=== PATIENT | female | born 1950 | race Caucasian/White ===

== ENCOUNTER 2017-06-14 02:11 | Emergency (ER) | payer SELFPAY ==
[2017-06-14] MEDS ORDERED: NS 0.9% 500 ML* 500 ML IV ONE (02:49)
[2017-06-14 03:55] LABS: Hematocrit 31 % (35-47); Hemoglobin 10.3 g/dl (12.0-16.0); Mean Corpuscular HGB Conc 33 g/dl (31-36); Mean Corpuscular Hemoglobin 31 pg (27-31); Mean Corpuscular Volume 92 fL (80-97); Mean Platelet Volume 8 um3 (7.4-10.4); Red Blood Count 3.36 10^6/ul (4.0-5.4); Red Cell Distribution Width 13 % (10.5-15); White Blood Count 8.9 10^3/ul (3.5-10.8)
[2017-06-14 04:06] LABS: ALT 15 U/L (7-52); AST 19 U/L (13-39); Albumin 3.4 g/dL (3.2-5.2); Alcohol < 10 mg/dL (<10); Alkaline Phosphatase 56 U/L (34-104); Anion Gap 7 mmol/L (2-11); BUN/Creatinine Ratio 25.7 (8-20); Blood Urea Nitrogen 18 mg/dL (6-24); CO2 Carbon Dioxide 27 mmol/L (22-32); Calcium 8.9 mg/dL (8.6-10.3); Chloride 102 mmol/L (101-111); Globulin 3.1 g/dL (2-4); Glucose 168 mg/dL (70-100); Potassium 3.4 mmol/L (3.5-5.0); Sodium 136 mmol/L (133-145); Total Protein 6.5 g/dL (6.4-8.9)
[2017-06-14 04:21] LABS: TSH (Thyroid Stimulating Horm) 2.11 mcIU/mL (0.34-5.60)
[2017-06-14 05:24] LABS: Urine Bacteria Absent (Absent); Urine Bilirubin Negative (Negative); Urine Glucose Negative (Negative); Urine Nitrite Negative (Negative)
[2017-06-14] MEDS ORDERED: Cephalexin CAP* 500 MG PO ONE (06:19)
--- NOTE | 2017-06-14 07:00 | ED ---
Lashaun Vickers Edward, scribed for Brenna Abreu MD on 06/14/17 at 0224 . Complex/Multi-Sys Presentation - HPI Summary HPI Summary: 67 y/o female LILLY c/o AMS and N/V. Pt is living in a building that deals with people in transition from homelessness and drug abuse. Per EMS, the pt's living conditions are extremely poor. Per EMS, the pt's roommates state that she was shaking her L arm. Pt used EtOH tonight, per EMS. Pt denies drug use. Associated sx: weakness. LEVEL 5 CAVEAT DUE TO AMS - History Of Current Complaint Chief Complaint: EDGeneral Time Seen by Provider: 06/14/17 02:18 Hx Obtained From: Patient Associated Signs And Symptoms: Positive: Nausea, Vomiting, Other - AMS - Allergies/Home Medications Allergies/Adverse Reactions: Allergies Allergy/AdvReac Type Severity Reaction Status Date / Time No Known Allergies Allergy Verified 07/26/14 12:37 PMH/Surg Hx/FS Hx/Imm Hx Previously Healthy: No Endocrine/Hematology History: Denies: Hx Anticoagulant Therapy, Hx Blood Disorders, Hx Blood Transfusions, Hx Bone Marrow Disease, Hx Diabetes, Hx Systemic Lupus Erythematosus, Hx Sickle Cell Disease, Hx Thyroid Disease, Hx Anemia, Hx Unexplained Bleeding, Other Endocrine/Hematological Disorders Cardiovascular History: Denies: Hx Pacemaker/ICD GI History: Reports: Hx Gall Bladder Disease Denies: Hx Cirrhosis, Hx Crohn's Disease, Hx Diverticulosis, Hx Gastroesophageal Reflux Disease, Hx Gastrointestinal Bleed, Hx Hiatal Hernia, Hx Irritable Bowel, Hx Jaundice, Hx Obstructive Bowel, Hx Ileostomy, Hx Pyloric Stenosis, Hx Ulcer, Other GI Disorders History: Reports: Other Problems/Disorders - gallbladder and appendix removed in the 90s Sensory History: Reports: Hx Contacts or Glasses - bifocals Denies: Hx Cataracts, Hx Eye Injury, Hx Eye Prosthesis, Hx Glaucoma, Hx Macular Degeneration, Hx Vision Problem, Hx Deafness, Hx Hearing Aid, Hx Hearing Problem, Other Sensory Impairments Opthamlomology History: Reports: Hx Contacts or Glasses - bifocals Denies: Hx Cataracts, Hx Eye Injury, Hx Eye Prosthesis, Hx Glaucoma, Hx Macular Degeneration, Hx Vision Problem, Other Sensory Impairments Neurological History: Reports: Other Neuro Impairments/Disorders - short term memory loss Denies: Hx Dementia, Hx Developmental Delay, Hx Headaches, Hx Migraine, Hx Nerve Disease, Hx Seizures, Hx Spinal Cord Injury Psychiatric History: Denies: Hx Panic Disorder Comment Only: Hx Schizophrenia - Mother had schixophrenia - Surgical History Surgery Procedure, Year, and Place: GALLBLADDER,APPY Hx Anesthesia Reactions: No Infectious Disease History: No Infectious Disease History: Denies: Hx Hepatitis, Traveled Outside the [place] in Last 30 Days - Family History Known Family History: Negative: Cardiac Disease, Respiratory Disease - Social History Alcohol Use: Occasionally Hx Substance Use: No Substance Use Type: Reports: None Hx Tobacco Use: No Smoking Status (MU): Never Smoked Tobacco Review of Systems - ROS Summary Review of Systems Summary: LEVEL 5 CAVEAT DUE TO AMS Positive: Vomiting, Nausea Neurological: Other - AMS Positive: Weakness All Other Systems Reviewed And Are Negative: No Physical Exam - Summary Physical Exam Summary: LEVEL 5 CAVEAT DUE TO AMS Appearance: AMS. There is vomit on the pt's glasses, face and legs. There are specks of feces and dirt on her legs. Skin: Warm, dry, no mottling, no rashes, no contusions HEENT: EOMI, PERRL, dry mucous membranes Neck: No masses on the neck, supple Respiratory: Clear to auscultation, breath sounds present, no rales, no rhonchi , no wheezes Cardiovascular: RRR, pulses are symmetrical in both lower and upper extremities. Pt is hypotensive. Abdomen: Soft, non-tender Bowel Sounds: Present Musculoskeletal: No CVA tenderness, no obvious deformity, moving all extremities in a grossly normal manner Neurological: CN II-XII Intact, moving all extremities symmetrically Psychiatric: Normal affect and mood Triage Information Reviewed: Yes Vital Signs On Initial Exam: Initial Vitals Temp Pulse Resp BP Pulse Ox 97.3 F 72 18 97/67 99 06/14/17 02:15 06/14/17 02:15 06/14/17 02:15 06/14/17 02:15 06/14/17 02:15 Vital Signs Reviewed: Yes Diagnostics - Vital Signs Vital Signs Temp Pulse Resp BP Pulse Ox 06/14/17 02:15 97.3 F 72 18 97/67 99 - Laboratory Lab Results: Lab Results 06/14/17 06/14/17 06/14/17 Range/Units 03:30 03:30 03:30 WBC 8.9 (3.5-10.8) 10^3/ul RBC 3.36 L (4.0-5.4) 10^6/ul Hgb 10.3 L (12.0-16.0) g/dl Hct 31 L (35-47) % MCV 92 (80-97) fL MCH 31 (27-31) pg MCHC 33 (31-36) g/dl RDW 13 (10.5-15) % Plt Count 280 (150-450) 10^3/ul MPV 8 (7.4-10.4) um3 Neut % (Auto) 78.2 (38-83) % Lymph % (Auto) 5.9 L (25-47) % [place] % (Auto) 5.6 (1-9) % Eos % (Auto) 9.6 H (0-6) % Baso % (Auto) 0.7 (0-2) % Absolute Neuts (auto) 7.0 (1.5-7.7) 10^3/ul Absolute Lymphs (auto) 0.5 L (1.0-4.8) 10^3/ul Absolute Monos (auto) 0.5 (0-0.8) 10^3/ul Absolute Eos (auto) 0.9 H (0-0.6) 10^3/ul Absolute Basos (auto) 0.1 (0-0.2) 10^3/ul Absolute Nucleated RBC 0 10^3/ul Nucleated RBC % 0 Sodium 136 (133-145) mmol/L Potassium 3.4 L (3.5-5.0) mmol/L Chloride 102 (101-111) mmol/L Carbon Dioxide 27 (22-32) mmol/L Anion Gap 7 (2-11) mmol/L BUN 18 (6-24) mg/dL Creatinine 0.70 (0.51-0.95) mg/dL Est GFR ( Amer) 108.0 (>60) Est GFR (Non-Af Amer) 84.0 (>60) BUN/Creatinine Ratio 25.7 H (8-20) Glucose 168 H (70-100) mg/dL Lactic Acid 1.9 (0.5-2.0) mmol/L Calcium 8.9 (8.6-10.3) mg/dL Magnesium 2.0 (1.9-2.7) mg/dL Total Bilirubin 0.20 (0.2-1.0) mg/dL AST 19 (13-39) U/L ALT 15 (7-52) U/L Alkaline Phosphatase 56 (34-104) U/L Total Protein 6.5 (6.4-8.9) g/dL Albumin 3.4 (3.2-5.2) g/dL Globulin 3.1 (2-4) g/dL Albumin/Globulin Ratio 1.1 (1-3) TSH 2.11 (0.34-5.60) mcIU/mL Urine Color Urine Appearance Urine pH (5-9) Ur Specific [place] (1.010-1.030) Urine Protein (Negative) Urine Ketones (Negative) Urine Blood (Negative) Urine Nitrate (Negative) Urine Bilirubin (Negative) Urine Urobilinogen (Negative) Ur Leukocyte Esterase (Negative) Urine WBC (Auto) (Absent) Urine RBC (Auto) (Absent) Ur Squamous Epith Cells (Absent) Urine Bacteria (Absent) Hyaline Casts (Absent) Urine Glucose (Negative) Serum Alcohol < 10 (<10) mg/dL 06/14/17 Range/Units 04:40 WBC (3.5-10.8) 10^3/ul RBC (4.0-5.4) 10^6/ul Hgb (12.0-16.0) g/dl Hct (35-47) % MCV (80-97) fL MCH (27-31) pg MCHC (31-36) g/dl RDW (10.5-15) % Plt Count (150-450) 10^3/ul MPV (7.4-10.4) um3 Neut % (Auto) (38-83) % Lymph % (Auto) (25-47) % [place] % (Auto) (1-9) % Eos % (Auto) (0-6) % Baso % (Auto) (0-2) % Absolute Neuts (auto) (1.5-7.7) 10^3/ul Absolute Lymphs (auto) (1.0-4.8) 10^3/ul Absolute Monos (auto) (0-0.8) 10^3/ul Absolute Eos (auto) (0-0.6) 10^3/ul Absolute Basos (auto) (0-0.2) 10^3/ul Absolute Nucleated RBC 10^3/ul Nucleated RBC % Sodium (133-145) mmol/L Potassium (3.5-5.0) mmol/L Chloride (101-111) mmol/L Carbon Dioxide (22-32) mmol/L Anion Gap (2-11) mmol/L BUN (6-24) mg/dL Creatinine (0.51-0.95) mg/dL Est GFR ( Amer) (>60) Est GFR (Non-Af Amer) (>60) BUN/Creatinine Ratio (8-20) Glucose (70-100) mg/dL Lactic Acid (0.5-2.0) mmol/L Calcium (8.6-10.3) mg/dL Magnesium (1.9-2.7) mg/dL Total Bilirubin (0.2-1.0) mg/dL AST (13-39) U/L ALT (7-52) U/L Alkaline Phosphatase (34-104) U/L Total Protein (6.4-8.9) g/dL Albumin (3.2-5.2) g/dL Globulin (2-4) g/dL Albumin/Globulin Ratio (1-3) TSH (0.34-5.60) mcIU/mL Urine Color Yellow Urine Appearance Cloudy Urine pH 6.0 (5-9) Ur Specific [place] 1.013 (1.010-1.030) Urine Protein 1+(30 mg/dl) H (Negative) Urine Ketones Negative (Negative) Urine Blood 1+ H (Negative) Urine Nitrate Negative (Negative) Urine Bilirubin Negative (Negative) Urine Urobilinogen Negative (Negative) Ur Leukocyte Esterase 3+ H (Negative) Urine WBC (Auto) 2+(11-20/hpf) H (Absent) Urine RBC (Auto) 2+(6-10/hpf) H (Absent) Ur Squamous Epith Cells Present H (Absent) Urine Bacteria Absent (Absent) Hyaline Casts Present H (Absent) Urine Glucose Negative (Negative) Serum Alcohol (<10) mg/dL Result Diagrams: 06/14/17 03:30 06/14/17 03:30 Lab Statement: Any lab studies that have been ordered have been reviewed, and results considered in the medical decision making process. - CT BRAIN CT CT Interpretation: No Acute Changes - NO ACUTE BRAIN PARENCHYMAL ABNORMALITY. NO HEMORRHAGE, MASS OR ACUTE TERRITORIAL INFARCT. AGE-RELATED INVOLUTIONAL CHANGES. CLEAR VISUALIZED PARANASAL SINUSES. VISUALIZED MASTOID AIR CELLS CLEAR. CT Interpretation Completed By: Radiologist - ED PHYSICIAN REVIEWS AND AGREES Re-Evaluation - Re-Evaluation 1 Re-Evaluation Time: 04:30 Comment: Re-assess pt. Pt is able to ambulate without difficulty 2 Re-Evaluation Time: 18:45 Comment: Discuss plan of care. Discussed plan to have pt work with social media marketing manager. Complex Multi-Symp Course/Dx Assessment/Plan: 67 y/o female BIBA c/o AMS and N/V. Pt is living in a building that deals with people in transition from homelessness and drug abuse. Per EMS, the pt's living conditions are extremely poor. Per EMS, the pt's roommates state that she was shaking her L arm. Pt used EtOH tonight, per EMS. Pt denies drug use. BRAIN CT SHOWS NO ACUTE BRAIN PARENCHYMAL ABNORMALITY. NO HEMORRHAGE, MASS OR ACUTE TERRITORIAL INFARCT. AGE-RELATED INVOLUTIONAL CHANGES. CLEAR VISUALIZED PARANASAL SINUSES. VISUALIZED MASTOID AIR CELLS CLEAR. On re-eval, pt is able to ambulate without difficulty. UA (+) UTI. LEVEL 5 CAVEAT DUE TO AMS - Diagnoses Provider Diagnoses: UTI (urinary tract infection), Weakness Discharge - Discharge Plan Condition: Stable Disposition: HOME Prescriptions: Cephalexin CAP* [Keflex CAP*] 500 mg PO TID 7 Days #21 cap Patient Education Materials: Urinary Tract Infection in Women (ED), Weakness ( ED) Referrals: No Primary Care Phys,NOPCP [Primary Care Provider] - Additional Instructions: Take the antibiotic as instructed. a prescription for keflex has been sent electronically to your pharmacy. return if worse or any new symptoms. Take all other medications as previously instructed. The documentation as recorded by the Lashaun antony Edward accurately reflects the service I personally performed and the decisions made by me, Brenna Abreu MD.
--- NOTE | 2017-06-14 08:05 | RAD ---
INDICATION: Altered mental status COMPARISON: MRI brain February 21, 2013 TECHNIQUE: Noncontrast axial source images were acquired from the skull base to the vertex. FINDINGS: Ventricles/sulci: The ventricles and cisterns are normal in size and configuration for age. There is mild age-related involutional change. Brain parenchyma: There is no focal parenchymal finding, evidence of intracranial mass, or intracranial mass effect. Intracranial hemorrhage:None. Extra-axial spaces: There are no abnormal extra axial fluid collections or evidence of extra-axial mass. Calvarium: There is no calvarial fracture or other calvarial abnormality. Scalp: There is no evidence of scalp or extracalvarial soft tissue abnormality. Paranasal sinuses/mastoid: The paranasal sinuses and mastoid air cells are clear. Other: None. IMPRESSION: No acute intracranial findings. No interval changes.
[2017-06-14 08:32] VITALS: BP 116/74
== END 2017-06-14 07:50 | disposition home or self-care (01) ==
LOC: ED 02:11
DX: N39.0 Urinary tract infection, site not specified (principal); R53.1 Weakness; R11.2 Nausea with vomiting, unspecified; R41.82 Altered mental status, unspecified
CPT/HCPCS: 36415; 70450; 80053; 80320; 81003; 81015; 83605; 83735; 84443; 85025; 87086; 99284; A9270-GY; G0480

== ENCOUNTER 2017-11-20 19:52 | Inpatient (IN) | payer MEDICARE ==
[2017-11-20] MEDS ORDERED: NS 0.9% 1000 ML* 1,000 ML IV ONE (21:31)
[2017-11-20 21:56] LABS: ABS Basophils 0 10^3/ul (0-0.2); ABS Eosinophils 0.1 10^3/ul (0-0.6); ABS Lymphocytes 0.4 10^3/ul (1.0-4.8); ABS Monocytes 0.4 10^3/ul (0-0.8); ABS Neutrophils 6.2 10^3/ul (1.5-7.7); ABS Nucleated RBC 0 10^3/ul; Eosinophil % 1.2 % (0-6); Hematocrit 35 % (35-47); Hemoglobin 11.7 g/dl (12.0-16.0); Lymphocyte % 5.5 % (25-47); Mean Corpuscular HGB Conc 34 g/dl (31-36); Mean Corpuscular Hemoglobin 32 pg (27-31); Mean Corpuscular Volume 95 fL (80-97); Mean Platelet Volume 8.6 um3 (7.4-10.4); Nucleated Red Blood Cells % 0; Platelet Count 190 10^3/ul (150-450); Red Blood Count 3.69 10^6/ul (4.0-5.4); Red Cell Distribution Width 16 % (10.5-15); White Blood Count 7.1 10^3/ul (3.5-10.8)
[2017-11-20 22:05] LABS: INR 0.82 (0.77-1.02)
[2017-11-20] MEDS ORDERED: Morphine INJ* 2 MG/ML 1 ML CARPUJECT IV ONE (22:30)
[2017-11-20] MEDS ORDERED: Morphine VIAL* 4 MG/ML VIAL (1 ml vial) IV ONE (22:32)
[2017-11-20] MEDS ORDERED: Ondansetron INJ* 2 MG/ML VIAL IV ONE (22:33)
[2017-11-21] MEDS ORDERED: diPHENhydraMINE IV* 50 MG/ML 1 ml VIAL (BENADRYL) ONE (01:39)
[2017-11-21] MEDS ORDERED: diPHENhydraMINE IV* 50 MG/ML 1 ml VIAL (BENADRYL) SLOW PUSH ONE (02:22)
[2017-11-21] MEDS ORDERED: Morphine VIAL* 4 MG/ML VIAL (1 ml vial) IV ONE (02:23)
[2017-11-21 03:45] LABS: Urine Appearance Clear; Urine Blood 2+ (Negative); Urine Color Yellow; Urine Ketones Negative (Negative); Urine Protein Negative (Negative); Urine Urobilinogen Negative (Negative)
[2017-11-21] MEDS: NS 0.9% 1000 ML* 1,000 ML IV SCH (04:14)
[2017-11-21] MEDS: Acetaminophen TAB* 325 MG PO SCH ×4 (05:14→21:24)
[2017-11-21] MEDS ORDERED: Enoxaparin(*) 30 MG/0.3 ML SYR SUBCUT SCH (06:00)
--- NOTE | 2017-11-21 06:11 | ED ---
Megan Vickers Jason, scribed for Carrol Ellison MD on 11/20/17 at 2109 . Adult Trauma - HPI Summary HPI Summary: This patient is a 67 year old F BIBA presenting to [facility] with a chief complaint of a non-witnessed fall since this evening. She states she slipped and fell going to the bathroom. Additionally, she includes that she lives with 5 friends. EMS states she was covered in feces and vomit, and had bed bugs upon arrival. She states she does not take medicines daily. When asked about leaving her current living situation she responded I dont want to be in fdc because I will feel like Im in an institution. The patient rates the pain 4/ 10 in severity. Symptoms aggravated by movement. Symptoms alleviated by nothing. Patient reports right leg pain. Patient denies headache and chest pain - History of Current Complaint Stated Complaint: RIGHT LEG PAIN Time Seen by Provider: 11/20/17 20:53 Hx Obtained From: Patient, EMS Mechanism of Injury: Fall - slipped in the bathroom Onset/Duration: Still Present Pain Scale Used: 0-10 Numeric Location: Other - right leg Aggravating Factor(s): Movement - leg movement Alleviating Factor(s): Nothing Associated Signs & Symptoms: Positive: Other: - right leg pain - Allergy/Home Medications Allergies/Adverse Reactions: Allergies Allergy/AdvReac Type Severity Reaction Status Date / Time No Known Allergies Allergy Verified 07/26/14 12:37 Home Medications: Home Medications NK [No Home Medications Reported] 11/20/17 [History Confirmed 11/20/17] PMH/Surg Hx/FS Hx/Imm Hx Previously Healthy: No Endocrine/Hematology History: Denies: Hx Anticoagulant Therapy, Hx Blood Disorders, Hx Blood Transfusions, Hx Bone Marrow Disease, Hx Diabetes, Hx Systemic Lupus Erythematosus, Hx Sickle Cell Disease, Hx Thyroid Disease, Hx Anemia, Hx Unexplained Bleeding, Other Endocrine/Hematological Disorders Cardiovascular History: Denies: Hx Pacemaker/ICD GI History: Reports: Hx Gall Bladder Disease Denies: Hx Cirrhosis, Hx Crohn's Disease, Hx Diverticulosis, Hx Gastroesophageal Reflux Disease, Hx Gastrointestinal Bleed, Hx Hiatal Hernia, Hx Irritable Bowel, Hx Jaundice, Hx Obstructive Bowel, Hx Ileostomy, Hx Pyloric Stenosis, Hx Ulcer, Other GI Disorders History: Reports: Other Problems/Disorders - gallbladder and appendix removed in the 90s Sensory History: Reports: Hx Contacts or Glasses - bifocals Denies: Hx Cataracts, Hx Eye Injury, Hx Eye Prosthesis, Hx Glaucoma, Hx Macular Degeneration, Hx Vision Problem, Hx Deafness, Hx Hearing Aid, Hx Hearing Problem, Other Sensory Impairments Opthamlomology History: Reports: Hx Contacts or Glasses - bifocals Denies: Hx Cataracts, Hx Eye Injury, Hx Eye Prosthesis, Hx Glaucoma, Hx Macular Degeneration, Hx Vision Problem, Other Sensory Impairments Neurological History: Reports: Other Neuro Impairments/Disorders - short term memory loss Denies: Hx Dementia, Hx Developmental Delay, Hx Headaches, Hx Migraine, Hx Nerve Disease, Hx Seizures, Hx Spinal Cord Injury Psychiatric History: Denies: Hx Panic Disorder Comment Only: Hx Schizophrenia - Mother had schixophrenia - Surgical History Surgery Procedure, Year, and Place: GALLBLADDER,APPY Hx Anesthesia Reactions: No Infectious Disease History: Denies: Hx Hepatitis, Traveled Outside the [place] in Last 30 Days - Family History Known Family History: Negative: Cardiac Disease, Hypertension, Diabetes, Respiratory Disease - Social History Alcohol Use: Occasionally Hx Substance Use: No Substance Use Type: Reports: None Hx Tobacco Use: No Smoking Status (MU): Never Smoked Tobacco Review of Systems Negative: Chest Pain Positive: Other - right leg pain Negative: Headache All Other Systems Reviewed And Are Negative: Yes Physical Exam - Summary Physical Exam Summary: GENERAL: Patient is a malnourished female who is lying comfortably in the stretcher. Patient is not in any acute respiratory distress. HEAD AND FACE: Normocephalic EYES: PERRLA, EOMI x 2. EARS: Hearing grossly intact. MOUTH: Oropharynx within normal limits. NECK: Supple, trachea is midline, no adenopathy, no JVD, no carotid bruit. CHEST: Symmetric, no tenderness at palpation LUNGS: Clear to auscultation bilaterally. No wheezing or crackles. CVS: Regular rate and rhythm, S1 and S2 present, no murmurs or gallops appreciated. ABDOMEN: Soft, no tenderness to palpation. Bowel sounds are normal. No abdominal abnormal pulsations. EXTREMITIES: Full ROM in all major joints, no edema, no cyanosis or clubbing. Tenderness to palpation in the right pelvis/femur area. Skin tear on right elbow. NEURO: Alert and oriented x 3. No acute neurological deficits. Speech is normal and follows commands. SKIN: Dry and warm Triage Information Reviewed: Yes Vital Signs Reviewed: Yes Diagnostics - Laboratory Result Diagrams: 11/20/17 21:40 11/20/17 21:40 Lab Statement: Any lab studies that have been ordered have been reviewed, and results considered in the medical decision making process. - Radiology CXR Radiology Interpretation Completed By: Radiologist - CXR reveals, per physician , hyperinflated lungs, no pneumonia. - CT Head CT Interpretation Completed By: Radiologist - CT Head reveals, per radiologist, No acute intracranial hemorrhage mass effect or midline shift. This CT exam was performed using one or more of the following dose reduction techniques: automated exposure control, adjustment of the mA and/or kV according to patient size, use of iterative reconstructive technique. ED physician has reviewed this radiology report Lower extremity CT Interpretation Completed By: Radiologist - CT Lower extremity, per radiologist, reveals acute impacted, communited, subcapital fracture right femoral head. Dilated urinary bladder. Large fecal colon. ED physician has reviewed this radiology report. Pelvis CT Interpretation Completed By: Radiologist - CT Pelvis reveals, per radiologist , acute fracture right femoral neck as previously described. Large feces rectum. Dilated bladder. ED physician has reviewed this radiology report. - EKG 213 Cardiac Rate: NL EKG Rhythm: Sinus Rhythm - [address] Segment: Non-Specific Ectopy: None Adult Trauma Course/Dx - Course Assessment/Plan: This is a 67 year old female who presents to the emergency room with right hip pain status post fall. Her workup is remarkable for elevated blood creatinine ratio at 25.3 and a lactic acid of 2.[address] scan of the hip is remarkable for a right femoral neck fracture. Patient will be admitted to the hospitalist, Dr. Torrez and consulted by Dr. Rice (orthopedist) in the morning. Patient made NPO for plan for OR later on. - Diagnoses Provider Diagnoses: Fracture of femoral neck, right, Dehydration - Physician Notifications Discussed Care Of Patient With: Philip Rice Time Discussed With Above Provider: 01:45 Instructed by Provider To: Admit As Inpatient Discharge - Sign-Out/Discharge Documenting (check all that apply): Discharge - Discharge Plan Condition: Stable Disposition: ADMITTED TO [facility] The documentation as recorded by the Megan antony Jason accurately reflects the service I personally performed and the decisions made by , Carrol Ellison MD.
--- NOTE | 2017-11-21 06:17 | HP ---
HISTORY AND PHYSICAL: DATE OF ADMISSION: 11/21/17 TIME OF ADMISSION: 2 o'clock a.m. CHIEF COMPLAINT: Fall. HISTORY OF PRESENT ILLNESS: This is a 67-year-old female with a history of dementia who is unable to provide me with a history of present illness, who was brought in by EMS today after her family called because she fell down two stairs. Ms. Mitchell is unable to provide me history due to dementia and her contact listed in the chart has a non-working number, so please note that this HPI is mostly obtained from her record and the EMS record. EMS reports that her family was there at the time they arrived and said that they found her on the floor and that her fall was unwitnessed, but that she was complaining of right leg pain at the time. Her family has not been in the emergency department with her. EMS reported deplorable home conditions with feces all over the house and holes in the floor. When she arrived to the emergency department, she was screaming non-sensibly. She was given food and told her nurse that she had not eaten and also received a bath from her nurse and reported that she had not been cleaned for some time. She cannot tell me why she is in the hospital or even that she is in the hospital. She is able to tell me that we are in [place], [place] and tell me her date of ; however, she shouts these answers without me asking those specific questions. She has outbursts of anxiety saying she "can't do it anymore" but does not respond to most of my questions. PAST MEDICAL HISTORY: Based on her records, it appears that she was evaluated by Neurology in 2013 and had some cognitive decline at that point, but they saw in Dr. Barrios's note, in December of 2013 she had no past medical history. PAST SURGICAL HISTORY: Again, this is obtained from her records, which indicate that she has had an appendectomy, a cholecystectomy, and a small bowel obstruction that required resection. HOME MEDICATIONS: Unknown and unable to be obtained at this point. SOCIAL HISTORY: She is unable to tell me anything about her home, her family, or who I should contact. Her son, Luis Fernando is listed as her point of contact; however, the phone number listed in the chart is not working. REVIEW OF SYSTEMS: She cannot provide me with her review of systems; however, she denies pain at this time. PHYSICAL EXAMINATION GENERAL: Alert, anxious, hypervigilant female who appears older than her stated age. She is ill appearing, very thin, and impulsive. VITAL SIGNS: Temperature 97.6, heart rate 68, respiratory rate 18, pulse ox 98 % on room air, blood pressure 130/80. HEENT: Pupils equal, round, and reactive to light. She is unable to follow my commands for extraocular movement or nystagmus exam. Her mucosa is dry. NECK: No cervical lymphadenopathy. No JVP. Thyroid is nonpalpable. LUNGS: Clear bilaterally. CHEST: Regular rate and rhythm. I hear no murmurs. ABDOMEN: Firm, mildly distended, and nontender to palpation. She has bowel sounds in all quadrants. A Holder catheter is in place draining yellow urine. EXTREMITIES: No edema. Distal extremities are cool bilaterally. DP pulses are 2+ bilaterally. She has no pain to palpation in the hip; however, she resists passive range of motion in the right hip. NEUROLOGIC: She is anxious, tremulous, and does not follow simple or complex commands. She moves all 4 extremities, has facial symmetry. LABORATORY DATA/DIAGNOSTIC STUDIES: Sodium 133, potassium 4.1, chloride 98, bicarb 27, BUN 20, creatinine 0.79, glucose 156, lactic acid 2.5, magnesium 1.7. Troponin 0.00. EKG, normal sinus rhythm at 68, normal axis, normal intervals, no ST or T-wave changes. CT head, no acute intracranial hemorrhage, mass effect, or midline shift. Pelvis CT, acute fracture of right femoral neck. Lower extremity CT, acute impacted comminuted subcapital fracture of the right femoral head. ASSESSMENT AND PLAN: This is a 67-year-old female with history of dementia as per the EMS report, who was transferred to the emergency department after her family called EMS because she had an unwitnessed fall and right hip pain and was found to have a right femoral neck fracture in the ED. 1. Right femoral neck fracture. The emergency department has consulted Orthopedic Surgery and I appreciate their consultation on this patient. She certainly cannot provide consent, so family will need to be obtained as soon as possible, and I am entering a social work consult to help find family. For the fracture, she is unable to articulate pain, so I am giving her standing Tylenol as I suspect uncontrolled pain may be contributing to her delirium. 2. Delirium versus dementia. EMS documented that her family told them that she has dementia; however, I have no other confirmation of this. She has no record of workup and she has not been here since 2013 to rule out acute causes of encephalopathy. I am checking a UA, an ammonia, a drug screen, and alcohol level, salicylate level, and acetaminophen level and ammonia, B12, and RPR. A CT head was negative in the emergency department. 3. Abdominal distention. I am checking a KUB now. She does not have an acute abdomen on my exam, but she may need a bowel regimen. 4. Hyponatremia. She is hypovolemic. I suspect this is related to poor p.o. intake. Start normal saline and recheck in the morning. 5. Elevated lactate. Recheck after IV fluids. 6. DVT prophylaxis. Lovenox subcutaneously. 7. Diet. N.p.o. for possible OR intervention. Admit to hospitalist service with orthopedic consult. I am requesting social work input for helping to find family as well as adult protective services. [id number]/[facility] #: [id number] [facility]ATR[facility] CENTERMohit
--- NOTE | 2017-11-21 08:40 | RAD ---
Indication: Syncope. Single frontal view of the chest performed at 2215 hours was reviewed. Comparison is made with previous exam dated February 11, 2013. No mediastinal shift is noted. Heart is of normal size and configuration. Lung vasquez appear clear. IMPRESSION: NO ACTIVE CARDIOPULMONARY DISEASE IS NOTED.
--- NOTE | 2017-11-21 08:45 | RAD ---
Indication: Fall, head injury. CT of the brain was performed without IV contrast. Ventricular structures are midline. No midline shift is noted. The extra-axial spaces are unremarkable. There is no evidence of intracranial mass or hemorrhage. No other high or low density lesions are identified. Mastoid air cells and paranasal sinuses are grossly unremarkable. IMPRESSION: No intracranial mass or hemorrhage is noted.
--- NOTE | 2017-11-21 08:47 | RAD ---
Indication: Right hip injury. CT of the pelvis was obtained in the axial plane. Sagittal and coronal reconstructed images were obtained. There is a subcapital fracture of the right femoral neck with overriding of the fracture fragments. Diffuse edema is noted. Pelvic ring is intact without evidence of fracture. The lower lumbar spine and sacrum are grossly unremarkable. The urinary bladder is markedly distended. No dilated loops of bowel are noted. The colon is filled with stool. IMPRESSION: There appears to be a fracture of the right femoral neck with overriding of the fracture fragments. Pelvic ring is otherwise intact. There is urinary distention noted.
[2017-11-21 08:48] LABS: EGFR Non-African American 75.2 (>60)
--- NOTE | 2017-11-21 08:50 | RAD ---
Indication: Right hip and femur pain. CT of the right femur was obtained in the axial plane. Sagittal and coronal reconstructed images were obtained. There is a fracture through the neck of the right femur. There is overriding of the fracture fragments. The remainder of the femur shows no fracture. Markedly distended urinary bladder is noted. Cc are present throughout. IMPRESSION: Fracture neck of the femur with overriding of the fracture fragments.
[2017-11-21] MEDS ORDERED: Magnesium Sulf 4 GM/100 ML IV* 4,000 MG/100 ML BAG IVPB ONE (09:02)
--- NOTE | 2017-11-21 10:24 | PN ---
Subjective Date of Service: 11/21/17 Interval History: Patient seen and examined at bedside. Denies fever, chills, shortness of breath , chest discomfort, N/V/D. Pt continues to have confusion, I suspect this is similar to her baseline. Pt is unclear on any details related to her fall. Family History: Unchanged from Admission Social History: Unchanged from Admission Past Medical History: Unchanged from Admission Objective Active Medications: Acetaminophen (Tylenol Tab*) 975 mg PO Q6H HERO Enoxaparin Sodium (Lovenox(*)) 30 mg SUBCUT Q24H HERO Sodium Chloride (Ns 0.9% 1000 Ml*) 1,000 mls @ 125 mls/hr IV PER RATE HERO Magnesium Sulfate (Magnesium Sulf 4 Gm/100 Ml Iv*) 4,000 mg in 100 mls @ 33.333 mls/hr IVPB ONCE ONE Stop: 11/21/17 12:01 Vital Signs - 8 hr 11/21/17 11/21/17 11/21/17 02:47 03:00 03:04 Temperature Pulse Rate 87 92 Respiratory 22 28 18 Rate Blood Pressure 147/76 (mmHg) O2 Sat by Pulse 97 97 Oximetry 11/21/17 11/21/17 11/21/17 03:13 03:18 03:27 Temperature 98.5 F 98.6 F Pulse Rate 87 88 82 Respiratory 17 19 20 Rate Blood Pressure 119/88 136/75 136/75 (mmHg) O2 Sat by Pulse 99 97 97 Oximetry 11/21/17 11/21/17 11/21/17 03:50 05:05 05:06 Temperature 98.5 F Pulse Rate 87 Respiratory 17 16 16 Rate Blood Pressure 119/88 (mmHg) O2 Sat by Pulse 99 Oximetry 11/21/17 07:29 Temperature 97.6 F Pulse Rate 84 Respiratory 16 Rate Blood Pressure 111/61 (mmHg) O2 Sat by Pulse 99 Oximetry Oxygen Devices in Use Now: None Appearance: NAD, laying in bed Ears/Nose/Mouth/Throat: Mucous Membranes Moist Respiratory: Symmetrical Chest Expansion and Respiratory Effort, Clear to Auscultation Cardiovascular: NL Sounds; No Murmurs; No JVD, RRR Abdominal: NL Sounds; No Tenderness; No Distention Extremities: No Edema Neurological: - - Alert and Oriented to Person, states she is in [place] Lines/Tubes/Other Access: Clean, Dry and Intact Holder - patent, draining clear yellow urine, Clean, Dry and Intact Peripheral IV - site benign Nutrition: Taking PO's Result Diagrams: 11/20/17 21:40 11/21/17 08:17 Assess/Plan/Problems-Billing Assessment: Ms. Mitchell is a 67 yo female with PMH significant for possible dementia who presented to the emergency room after an unwitnessed fall at home resulting in a right hip fracture. - Patient Problems (1) Fracture of femoral neck, right Code(s): S72.001A - FRACTURE OF UNSP PART OF NECK OF RIGHT FEMUR, INIT SNOMED Code(s): 5371751 Comment: - Ortho consult, input appreciated - Continue bedrest and pain control According to the RCRI she has 0 points, placing her at a class I risk and a 0.4 % risk of a major cardiac event. Prior METs score 4. No further work-up is needed at this time, she is medically optimized for surgery and may proceed when Ortho is ready. (2) Altered mental status Code(s): R41.82 - ALTERED MENTAL STATUS, UNSPECIFIED SNOMED Code(s): 957804139 Comment: - Delirium vs dementia - Suspect this is her baseline dementia - Work-up negative at this time (includes labs and brain CT) (3) Abdominal distention Code(s): R14.0 - ABDOMINAL DISTENSION (GASEOUS) SNOMED Code(s): 37364758 Comment: - Resolved - Pt had 2 BMs last night (4) Hypomagnesemia Code(s): E83.42 - HYPOMAGNESEMIA SNOMED Code(s): 010856251 Comment: - Will give replacement and recheck labs in the AM (5) Hyponatremia Code(s): E87.1 - HYPO-OSMOLALITY AND HYPONATREMIA SNOMED Code(s): 49704356 Comment: - Mild - Continue IVFs (6) Elevated lactic acid level Code(s): R79.89 - OTHER SPECIFIED ABNORMAL FINDINGS OF BLOOD CHEMISTRY SNOMED Code(s): 1904128 Comment: - Resolved - No signs of infection at this time, suspect secondary to stress from fall vs dehydration (7) DVT prophylaxis Code(s): ULB3689 - SNOMED Code(s): 394461548 Comment: - Lovenox (8) Full code status Code(s): Z78.9 - OTHER SPECIFIED HEALTH STATUS SNOMED Code(s): 994231688 Status and Disposition: Inpatient. Discharge after surgery once medically stable, suspect she will need SNF vs [facility] at discharge.
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
[2017-11-21] MEDS ORDERED: NS 0.9% 500 ML* 500 ML IV ONE ×2 (13:03→13:52)
[2017-11-21 14:18] LABS: Hematocrit 26 % (35-47); Hemoglobin 8.7 g/dl (12.0-16.0)
[2017-11-21] MEDS ORDERED: Buffered Lidocaine 0.9% SYRIN* 5 ML/SYR SYRINGE INTRADERM ONE (14:27)
[2017-11-21] MEDS ORDERED: DiMENhydriNATE IV* 50 MG/ML VIAL IV PUSH PRN (14:28)
[2017-11-21] MEDS ORDERED: fentaNYL* 50 MCG/ML 2 ML VIAL (100 MCG VIAL) IV PRN (14:28)
[2017-11-21] MEDS ORDERED: Levalbuterol 0.63MG/3ML NEB* UNIT OF USE INH PRN (14:28)
[2017-11-21] MEDS ORDERED: Naloxone* 0.4 MG/ML 1 ML VIAL IV PRN (14:28)
[2017-11-21] MEDS ORDERED: PROCHLORPERAZINE INJ 5 MG/ML 2 ML VIAL IV PRN (14:28)
[2017-11-21] MEDS ORDERED: ceFAZolin 2 GM PREMIX (*) 2 GM/50 ML BAG IVPB ONE (15:03)
[2017-11-21] MEDS ORDERED: fentaNYL* 50 MCG/ML 2 ML VIAL (100 MCG VIAL) ONE (15:30)
[2017-11-21] MEDS ORDERED: Midazolam* 1 MG/ML 2 ML VIAL (2 MG) ONE (15:30)
[2017-11-21] MEDS ORDERED: Bupivacaine 0.5%* 50 ML VIAL ONE (15:34)
[2017-11-21] MEDS ORDERED: Lidocaine 2% PF * 5 ML VIAL ONE (15:36)
[2017-11-21] MEDS ORDERED: Cisatracurium* 2 MG/ML MDV 5 ML ONE (15:37)
[2017-11-21] MEDS ORDERED: Hetastarch 6% in NS* 500 ML IV ONE (16:24)
[2017-11-21] MEDS ORDERED: Famotidine IV* 10 MG/ML 2 ML (20 mg) ONE (16:42)
[2017-11-21] MEDS ORDERED: EPHEDrine (Pressors)* 50 MG/ML VIAL ONE (16:42)
[2017-11-21] MEDS ORDERED: Propofol* 10 MG/ML 20 ML BTL IV PUSH ONE (16:42)
[2017-11-21] MEDS ORDERED: Dexamethasone IV* 4 MG/ML 1 ML (4 MG) ONE (16:42)
[2017-11-21 18:57] LABS: Hematocrit 22 % (35-47); Hemoglobin 7.4 g/dl (12.0-16.0)
--- NOTE | 2017-11-21 19:21 | RAD ---
Indication: Right hip replacement status post right hip fracture. AP view of the pelvis and an lateral view of the right hip demonstrates unipolar right hip replacement and femoral head prosthesis in satisfactory position. No evidence of periprosthetic fracture is noted. Additional right hip view demonstrates no fracture. IMPRESSION: Unipolar right hip replacement in satisfactory position.
[2017-11-21] MEDS ORDERED: oxyCODONE TAB* 5 MG TAB PO PRN (20:30)
[2017-11-21] MEDS: ceFAZolin 1 GM VIAL(*) 1 GM in D5W 50 ML BAG* 50 ML IVPB SCH (23:53)
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
[2017-11-22] MEDS: Acetaminophen TAB* 325 MG PO SCH ×4 (02:50→21:02)
[2017-11-22] MEDS: NS 0.9% 1000 ML* 1,000 ML IV SCH ×2 (05:08→20:04)
[2017-11-22 06:11] LABS: ABS Basophils 0 10^3/ul (0-0.2); ABS Eosinophils 0 10^3/ul (0-0.6); ABS Lymphocytes 0.5 10^3/ul (1.0-4.8); ABS Monocytes 0.4 10^3/ul (0-0.8); ABS Nucleated RBC 0 10^3/ul; Eosinophil % 0.2 % (0-6); Hematocrit 27 % (35-47); Hemoglobin 9.3 g/dl (12.0-16.0); Lymphocyte % 10.8 % (25-47); Mean Corpuscular HGB Conc 35 g/dl (31-36); Mean Corpuscular Hemoglobin 31 pg (27-31); Mean Corpuscular Volume 90 fL (80-97); Mean Platelet Volume 8.7 um3 (7.4-10.4); Nucleated Red Blood Cells % 0; Platelet Count 104 10^3/ul (150-450); Red Blood Count 2.96 10^6/ul (4.0-5.4); Red Cell Distribution Width 19 % (10.5-15)
[2017-11-22 06:14] LABS: EGFR Non-African American 102.3 (>60)
[2017-11-22] MEDS: ceFAZolin 1 GM VIAL(*) 1 GM in D5W 50 ML BAG* 50 ML IVPB SCH ×2 (08:04→16:04)
--- NOTE | 2017-11-22 08:36 | PN ---
Progress Note - Progress Note Date of Service: 11/22/17 SOAP: Subjective: 67 y/o female s/p hemiarthroplasty bipolar by Dr. Rice 11/21/2017. Patient states she noticed dropping objects more frequently, does remember surgery when reminded. VSS, afebrile overnight. Objective: General- Well appearing, NAD, AO sitting in chair comfortably. MSK- RLE- DF/PF = b/l, PT 2+, negative homans sign surgical dressing intact, no induration/erythema around dressing, non TTP, SITLT. Vital Signs Temp 97.7 F 11/22/17 03:26 Pulse 59 11/22/17 03:26 Resp 18 11/22/17 08:00 BP 96/57 11/22/17 03:26 Pulse Ox 100 11/22/17 03:26 Intake & Output 11/21/17 11/22/17 11/22/17 18:59 06:59 18:59 Intake Total 3404 1494 Output Total 1000 2775 Balance 2404 -1281 Intake: IV Fluids 3404 692 LR 1900 NS (0.9%) 1504 692 Oral 0 480 Packed Cells 322 Output: Holder 1000 2775 Other: # Bowel Movements 0 Estimated Blood Loss 200 Comment Assessment: Stable s/p hemiarthroplasty bipolar by Dr. Rice 11/21/2017 Plan: - DVT prophylaxis- Eliquis - Continue PT/ OT - Follow up with Dr. Rice within 10-14 days - H&H - stable, mild post-op anemia - post-op IV ABX - cefazolin running - UTI- cefazolin running x 5 days - Neurology consult placed for eval for possible reversible cause of dementia. - May be D/C'd with Knee immobilizer for sleeping rather then hip ABD brace due to dementia, fall risk. - Hip precautions - SOcial work following, will need placement, discussed with hospitalist. Acetaminophen (Tylenol Tab*) 975 mg PO Q6H [facility] Last Admin: 11/22/17 02:50 Dose: 975 mg Apixaban (Eliquis*) 5 mg PO BID [facility] Sodium Chloride (Ns 0.9% 1000 Ml*) 1,000 mls @ 125 mls/hr IV PER RATE [facility] Last Admin: 11/22/17 05:08 Dose: 125 mls/hr Cefazolin Sodium 1 gm/ (Dextrose) 50 mls @ 200 mls/hr IVPB Q8H [facility] Stop: 11/23/17 16:14 Last Admin: 11/22/17 08:04 Dose: 200 mls/hr Naloxone HCl (Narcan*) 0.08 mg IV Q2M PRN PRN Reason: severe induced resp depression Stop: 11/22/17 14:27 Oxycodone HCl (Roxycodone Tab*) 10 mg PO Q6H PRN PRN Reason: PAIN
--- NOTE | 2017-11-22 08:40 | PN ---
Progress Note - Progress Note Date of Service: 11/22/17 SOAP: Subjective: [] Objective: [] Assessment: [] Plan: []
[2017-11-22] MEDS: Apixaban* 5 MG TAB PO SCH ×2 (09:07→21:02)
[2017-11-22] MEDS ORDERED: Bisacodyl SUPP* 10 MG SUPP PR PRN (16:24)
[2017-11-22] MEDS ORDERED: Sodium Phosphate ADULT ENEMA* 118 ml bottle PR PRN (16:24)
--- NOTE | 2017-11-22 16:28 | PN ---
Subjective Date of Service: 11/22/17 Interval History: Patient seen and examined at bedside. Denies fever, chills, shortness of breath , chest discomfort, N/V/D. Pt continues to have confusion, but is very happy to be spending time with her daughter. Family History: Unchanged from Admission Social History: Unchanged from Admission Past Medical History: Unchanged from Admission Objective Active Medications: Acetaminophen (Tylenol Tab*) 975 mg PO Q6H [facility] Apixaban (Eliquis*) 5 mg PO BID HERO Sodium Chloride (Ns 0.9% 1000 Ml*) 1,000 mls @ 125 mls/hr IV PER RATE [facility] Cefazolin Sodium 1 gm/ (Dextrose) 50 mls @ 200 mls/hr IVPB Q8H [facility] Stop: 11/23/17 16:14 Oxycodone HCl (Roxycodone Tab*) 10 mg PO Q6H PRN Reason: PAIN Vital Signs - 8 hr 11/22/17 11/22/17 11/22/17 08:29 11:57 12:00 Temperature 97.8 F 97.4 F Pulse Rate 63 74 Respiratory 16 18 Rate Blood Pressure 90/51 77/42 106/54 (mmHg) O2 Sat by Pulse 100 Oximetry Oxygen Devices in Use Now: None Appearance: NAD, sitting up in a chair Ears/Nose/Mouth/Throat: Mucous Membranes Moist Respiratory: Symmetrical Chest Expansion and Respiratory Effort, Clear to Auscultation Cardiovascular: NL Sounds; No Murmurs; No JVD, RRR Abdominal: NL Sounds; No Tenderness; No Distention Extremities: - - Mild right hip edema Skin: - - Dressing to right hip clean, dry and intact Neurological: - - Alert and Oriented to self, confused Lines/Tubes/Other Access: Clean, Dry and Intact Peripheral IV - site benign Nutrition: Taking PO's Result Diagrams: 11/22/17 05:20 11/22/17 05:20 Microbiology and Other Data: Microbiology 11/21/17 02:45 Urine Culture - Final Urine No Growth (<1,000 CFU/mL) Assess/Plan/Problems-Billing Assessment: Ms. Mitchell is a 67 yo female with PMH significant for possible dementia who presented to the emergency room after an unwitnessed fall at home resulting in a right hip fracture. - Patient Problems (1) Fracture of femoral neck, right Code(s): S72.001A - FRACTURE OF UNSP PART OF NECK OF RIGHT FEMUR, INIT SNOMED Code(s): 1899219 Comment: - S/P right hip hemiarthroplsty, POD #1 - Management per ortho - Continue PT/OT - Continue pain management and bowel regimen (2) Altered mental status Code(s): R41.82 - ALTERED MENTAL STATUS, UNSPECIFIED SNOMED Code(s): 909214345 Comment: - Delirium vs dementia - Suspect this is her baseline dementia - Work-up negative at this time (includes labs and brain CT) (3) Abdominal distention Code(s): R14.0 - ABDOMINAL DISTENSION (GASEOUS) SNOMED Code(s): 31215973 Comment: - Resolved - Pt had 2 BMs last night (4) Hypomagnesemia Code(s): E83.42 - HYPOMAGNESEMIA SNOMED Code(s): 185801690 Comment: - Resolved (5) Hyponatremia Code(s): E87.1 - HYPO-OSMOLALITY AND HYPONATREMIA SNOMED Code(s): 00122020 Comment: - Mild - Suspect secondary to dehydration - Continue IVFs (6) Elevated lactic acid level Code(s): R79.89 - OTHER SPECIFIED ABNORMAL FINDINGS OF BLOOD CHEMISTRY SNOMED Code(s): 0779673 Comment: - Resolved - No signs of infection at this time, suspect secondary to stress from fall vs dehydration (7) DVT prophylaxis Code(s): AQS3760 - SNOMED Code(s): 574139565 Comment: - Eliquis per Ortho (8) Full code status Code(s): Z78.9 - OTHER SPECIFIED HEALTH STATUS SNOMED Code(s): 031257482 Status and Disposition: Inpatient. Discharge after surgery once medically stable, suspect she will need SNF vs [facility] at discharge. Attending: Rose Brown
[2017-11-22] MEDS: Polyethylene Glycol 3350* 17 GM PACKET PO PRN (17:05)
[2017-11-23] MEDS: ceFAZolin 1 GM VIAL(*) 1 GM in D5W 50 ML BAG* 50 ML IVPB SCH ×3 (00:13→15:09)
[2017-11-23] MEDS: Acetaminophen TAB* 325 MG PO SCH ×4 (02:56→20:44)
[2017-11-23] MEDS: NS 0.9% 1000 ML* 1,000 ML IV SCH ×2 (04:13→12:37)
[2017-11-23 05:50] LABS: Hematocrit 22 % (35-47); Hemoglobin 7.2 g/dl (12.0-16.0)
[2017-11-23 06:07] LABS: EGFR Non-African American 94.8 (>60)
[2017-11-23] MEDS: Apixaban* 5 MG TAB PO SCH (08:57)
[2017-11-23] MEDS ORDERED: oxyCODONE TAB* 5 MG TAB PO PRN (15:30)
--- NOTE | 2017-11-23 15:31 | PN ---
Subjective Date of Service: 11/23/17 Interval History: Patient seen and examined at bedside. Denies fever, chills, lightheadedness or dizziness, shortness of breath, chest discomfort, N/V/D. Pt is c/o right hip pain. Family History: Unchanged from Admission Social History: Unchanged from Admission Past Medical History: Unchanged from Admission Objective Active Medications: Acetaminophen (Tylenol Tab*) 975 mg PO Q6H HERO Apixaban (Eliquis*) 5 mg PO BID HERO Bisacodyl (Dulcolax Supp*) 10 mg MO DAILY PRN Reason: CONSTIPATION Sodium Chloride (Ns 0.9% 1000 Ml*) 1,000 mls @ 125 mls/hr IV PER RATE [facility] Cefazolin Sodium 1 gm/ (Dextrose) 50 mls @ 200 mls/hr IVPB Q8H [facility] Stop: 11/23/17 16:14 Oxycodone HCl (Roxycodone Tab*) 10 mg PO Q6H PRN Reason: PAIN Polyethylene Glycol/Electrolytes (Miralax*) 17 gm PO DAILY PRN Reason: CONSTIPATION Sodium Biphosphate/Sodium Phosphate (Fleet Enema*) 1 bottle MO DAILY PRN Reason : CONSTIPATION Vital Signs - 8 hr 11/23/17 11/23/17 11:36 12:41 Temperature 98.4 F Pulse Rate 82 Respiratory 14 Rate Blood Pressure 85/53 82/78 (mmHg) O2 Sat by Pulse 100 Oximetry Oxygen Devices in Use Now: None Appearance: NAD, sitting up in a chair Ears/Nose/Mouth/Throat: Mucous Membranes Moist Respiratory: Symmetrical Chest Expansion and Respiratory Effort, Clear to Auscultation Cardiovascular: NL Sounds; No Murmurs; No JVD, RRR Abdominal: NL Sounds; No Tenderness; No Distention Extremities: No Edema Skin: No Rash or Ulcers, - Neurological: Alert and Oriented x 3, NL Muscle Strength and Tone Lines/Tubes/Other Access: Clean, Dry and Intact Peripheral IV - site benign Nutrition: Taking PO's Result Diagrams: 11/23/17 05:04 11/23/17 05:04 Microbiology and Other Data: Microbiology 11/21/17 02:45 Urine Culture - Final Urine No Growth (<1,000 CFU/mL) Assess/Plan/Problems-Billing Assessment: Ms. Mithcell is a 67 yo female with PMH significant for possible dementia who presented to the emergency room after an unwitnessed fall at home resulting in a right hip fracture. - Patient Problems (1) Fracture of femoral neck, right Code(s): S72.001A - FRACTURE OF UNSP PART OF NECK OF RIGHT FEMUR, INIT SNOMED Code(s): 0043911 Comment: - S/P right hip hemiarthroplsty, POD 2 - Management per ortho - Continue PT/OT - Continue pain management and bowel regimen (2) Anemia Code(s): D64.9 - ANEMIA, UNSPECIFIED SNOMED Code(s): 123734695 Comment: - Acute blood loss anemia - HH stable, but down slightly today - Pt is hypotensive - Received 1 unit of PRBCs POD and will give another unit today - Continue to monitor HH (3) Malnutrition Code(s): E46 - UNSPECIFIED PROTEIN-CALORIE MALNUTRITION SNOMED Code(s): 73372562 Comment: - Suspect chronic illness (dementia) vs social/environmental - Nutrition consult, input appreciated - Continue ensure supplement - Will get a 48 hour calorie count (4) Altered mental status Code(s): R41.82 - ALTERED MENTAL STATUS, UNSPECIFIED SNOMED Code(s): 607996305 Comment: - Delirium vs dementia - Suspect this is her baseline dementia - Work-up negative at this time (includes labs and brain CT) (5) Abdominal distention Code(s): R14.0 - ABDOMINAL DISTENSION (GASEOUS) SNOMED Code(s): 15630350 Comment: - Resolved (6) Hypomagnesemia Code(s): E83.42 - HYPOMAGNESEMIA SNOMED Code(s): 831262777 Comment: - Resolved (7) Hyponatremia Code(s): E87.1 - HYPO-OSMOLALITY AND HYPONATREMIA SNOMED Code(s): 27489642 Comment: - Mild - Suspect secondary to dehydration - Continue IVFs (8) Elevated lactic acid level Code(s): R79.89 - OTHER SPECIFIED ABNORMAL FINDINGS OF BLOOD CHEMISTRY SNOMED Code(s): 1368133 Comment: - Resolved - No signs of infection at this time, suspect secondary to stress from fall vs dehydration (9) DVT prophylaxis Code(s): UIT8632 - SNOMED Code(s): 629426333 Comment: - Eliquis per Ortho (10) Full code status Code(s): Z78.9 - OTHER SPECIFIED HEALTH STATUS SNOMED Code(s): 512071375 Status and Disposition: Inpatient. Discharge after surgery once medically stable, suspect she will need SNF vs [facility] at discharge.
--- NOTE | 2017-11-23 17:22 | PN ---
Progress Note - Progress Note Date of Service: 11/23/17 SOAP: Subjective: []Patient seen OOB in chair. She feels well. Denies pain of LLE. Denies CP, SOB , dizziness, nausea, fever, chills. Objective: [] Vital Signs Temp 97.4 F 11/23/17 15:43 Pulse 106 11/23/17 15:43 Resp 16 11/23/17 15:43 BP 103/61 11/23/17 15:43 Pulse Ox 99 11/23/17 15:43 Intake & Output 11/22/17 11/23/17 11/23/17 18:59 06:59 18:59 Intake Total 345 3660 1690 Output Total 550 1825 150 Balance -205 1835 1540 Intake: IV Fluids 1960 980 NS (0.9%) 1960 980 IVPB 100 50 ABX - CEFAZOLIN 100 50 Oral 345 1600 660 Output: Urine 150 Holder 550 1825 Other: # Bowel Movements 1 Estimated Stool Amount Small Small Laboratory Last Values WBC 5.0 10^3/ul (3.5-10.8) 11/22/17 05:20 RBC 2.96 10^6/ul (4.0-5.4) L 11/22/17 05:20 Hgb 7.2 g/dl (12.0-16.0) L 11/23/17 05:04 Hct 22 % (35-47) L 11/23/17 05:04 MCV 90 fL (80-97) 11/22/17 05:20 MCH 31 pg (27-31) 11/22/17 05:20 MCHC 35 g/dl (31-36) 11/22/17 05:20 RDW 19 % (10.5-15) H 11/22/17 05:20 Plt Count 104 10^3/ul (150-450) L 11/22/17 05:20 MPV 8.7 um3 (7.4-10.4) 11/22/17 05:20 Neut % (Auto) 80.3 % (38-83) 11/22/17 05:20 Lymph % (Auto) 10.8 % (25-47) L 11/22/17 05:20 [place] % (Auto) 8.3 % (0-7) H 11/22/17 05:20 Eos % (Auto) 0.2 % (0-6) 11/22/17 05:20 Baso % (Auto) 0.4 % (0-2) 11/22/17 05:20 Absolute Neuts (auto) 4.0 10^3/ul (1.5-7.7) 11/22/17 05:20 Absolute Lymphs (auto) 0.5 10^3/ul (1.0-4.8) L 11/22/17 05:20 Absolute Monos (auto) 0.4 10^3/ul (0-0.8) 11/22/17 05:20 Absolute Eos (auto) 0 10^3/ul (0-0.6) 11/22/17 05:20 Absolute Basos (auto) 0 10^3/ul (0-0.2) 11/22/17 05:20 Absolute Nucleated RBC 0 10^3/ul 11/22/17 05:20 Nucleated RBC % 0 11/22/17 05:20 INR (Anticoag Therapy) 0.82 (0.77-1.02) 11/20/17 21:40 APTT 27.8 seconds (26.0-36.3) 11/20/17 21:40 Sodium 138 mmol/L (139-145) L 11/23/17 05:04 Potassium 4.1 mmol/L (3.5-5.0) 11/23/17 05:04 Chloride 110 mmol/L (101-111) 11/23/17 05:04 Carbon Dioxide 25 mmol/L (22-32) 11/23/17 05:04 Anion Gap 3 mmol/L (2-11) 11/23/17 05:04 BUN 12 mg/dL (6-24) 11/23/17 05:04 Creatinine 0.63 mg/dL (0.51-0.95) 11/23/17 05:04 Est GFR ( Amer) 122.0 (>60) 11/23/17 05:04 Est GFR (Non-Af Amer) 94.8 (>60) 11/23/17 05:04 BUN/Creatinine Ratio 19.0 (8-20) 11/23/17 05:04 Glucose 98 mg/dL (70-100) 11/23/17 05:04 Lactic Acid 1.3 mmol/L (0.5-2.0) 11/21/17 08:17 Calcium 7.4 mg/dL (8.6-10.3) L 11/23/17 05:04 Magnesium 2.0 mg/dL (1.9-2.7) 11/22/17 05:20 Total Bilirubin 0.60 mg/dL (0.2-1.0) 11/20/17 21:40 AST 35 U/L (13-39) 11/20/17 21:40 ALT 27 U/L (7-52) 11/20/17 21:40 Alkaline Phosphatase 41 U/L (34-104) 11/20/17 21:40 Ammonia 58 mcmol/L (16-53) H 11/21/17 02:54 Total Creatine Kinase 155 U/L (10-223) 11/21/17 08:17 Troponin I 0.00 ng/mL (<0.04) 11/21/17 02:55 B-Natriuretic Peptide 131 pg/mL (-100) H 11/20/17 21:40 Total Protein 6.6 g/dL (6.4-8.9) 11/20/17 21:40 Albumin 3.7 g/dL (3.2-5.2) 11/20/17 21:40 Globulin 2.9 g/dL (2-4) 11/20/17 21:40 Albumin/Globulin Ratio 1.3 (1-3) 11/20/17 21:40 Vitamin B12 453 pg/mL (180-914) 11/21/17 02:54 Urine Color Yellow 11/21/17 02:45 Urine Appearance Clear 11/21/17 02:45 Urine pH 5.0 (5-9) 11/21/17 02:45 Ur Specific [place] 1.020 (1.010-1.030) 11/21/17 02:45 Urine Protein Negative (Negative) 11/21/17 02:45 Urine Ketones Negative (Negative) 11/21/17 02:45 Urine Blood 2+ (Negative) A 11/21/17 02:45 Urine Nitrate Negative (Negative) 11/21/17 02:45 Urine Bilirubin Negative (Negative) 11/21/17 02:45 Urine Urobilinogen Negative (Negative) 11/21/17 02:45 Ur Leukocyte Esterase Negative (Negative) 11/21/17 02:45 Urine WBC (Auto) Trace(0-5/hpf) (Absent) 11/21/17 02:45 Urine RBC (Auto) 2+(6-10/hpf) (Absent) A 11/21/17 02:45 Ur Squamous Epith Cells Present (Absent) A 11/21/17 02:45 Urine Bacteria 1+ (Absent) A 11/21/17 02:45 Urine Glucose 2+(150 mg/dl) (Negative) A 11/21/17 02:45 Salicylates < 2.50 mg/dL (<30) 11/20/17 21:40 Urine Opiates Screen Presumptive positive (None Detect) A 11/21/17 02:45 Acetaminophen < 15 mcg/mL 11/20/17 21:40 Ur Barbiturates Screen None detected (None Detect) 11/21/17 02:45 Ur Phencyclidine Scrn None detected (None Detect) 11/21/17 02:45 Ur Amphetamines Screen None detected (None Detect) 11/21/17 02:45 U Benzodiazepines Scrn None detected (None Detect) 11/21/17 02:45 Urine Cocaine Screen None detected (None Detect) 11/21/17 02:45 U Cannabinoids Screen None detected (None Detect) 11/21/17 02:45 Serum Alcohol < 10 mg/dL (<10) 11/20/17 21:40 Blood Type A Positive 11/21/17 14:08 Antibody Screen Negative 11/21/17 14:08 Crossmatch See Detail 11/21/17 14:08 General: Well appearing, NAD. RLE: Dressing changed. Incision CDI without erythema, edema or discharge. DF/PF intact. Sensation intact distally. DP2+ BL LE: Calves supple and nontender without erythema, edema or palpable cords Assessment: []s/p right hemiarthroplasty bipolar by Dr. Rice 11/21/2017 Plan: - DVT prophylaxis- Eliquis. - Continue PT/ OT - Follow up with Dr. Rice within 10-14 days - H&H low, 1 unit PRBC - Urine culture returned with no growth. No antibiotic needed- discussed with medicine as well. - Neurology consult for eval for possible reversible cause of dementia - Hip spica ordered from rod hanger rather than immobilizer/ abduction pillow due to dementia. Will maintain use for 3 months post op. - Hip precautions
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
[2017-11-23] MEDS: Apixaban* 2.5 MG TAB PO SCH (20:45)
--- NOTE | 2017-11-23 21:49 | RAD ---
Indication: Dementia, cortical visual loss. Image sequences: Sagittal and axial T1, axial T2, FLAIR, diffusion and susceptibility weighted images of the brain were obtained. Ventricular structures are midline. No midline shift is noted. There is central and cortical atrophy noted. There is no evidence of intracranial mass or hemorrhage. No other high or low density lesions are identified. No restriction of diffusion is noted. Susceptibility weighted images demonstrates no susceptibility artifact. The FLAIR images demonstrates no vasogenic edema. Mastoid air cells and paranasal sinuses are grossly unremarkable. IMPRESSION: Central and cortical atrophy. No restriction of diffusion is noted. No definite intracranial mass or hemorrhage is noted.
[2017-11-24] MEDS: Acetaminophen TAB* 325 MG PO SCH ×4 (03:13→22:36)
[2017-11-24 05:44] LABS: Hematocrit 23 % (35-47)
[2017-11-24] MEDS: Polyethylene Glycol 3350* 17 GM PACKET PO PRN (09:01)
[2017-11-24] MEDS: Apixaban* 2.5 MG TAB PO SCH ×2 (09:02→22:36)
--- NOTE | 2017-11-24 15:14 | PN ---
Subjective Date of Service: 11/24/17 Interval History: Patient seen and examined at bedside. Denies fever, chills, shortness of breath , chest discomfort, N/V/D. Pt states that her pain is controlled. She states that she is eating well. Pt's daughter continues to be at bedside. Family History: Unchanged from Admission Social History: Unchanged from Admission Past Medical History: Unchanged from Admission Objective Active Medications: Acetaminophen (Tylenol Tab*) 975 mg PO Q6H HERO Apixaban (Eliquis) 2.5 mg PO BID HERO Bisacodyl (Dulcolax Supp*) 10 mg TX DAILY PRN Reason: CONSTIPATION Oxycodone HCl (Roxycodone Tab*) 5 mg PO Q4H PRN Reason: PAIN - UNCONTROLLED Polyethylene Glycol/Electrolytes (Miralax*) 17 gm PO DAILY PRN Reason: CONSTIPATION Sodium Biphosphate/Sodium Phosphate (Fleet Enema*) 1 bottle TX DAILY PRN Reason : CONSTIPATION Vital Signs - 8 hr 11/24/17 11/24/17 11/24/17 07:31 08:00 11:18 Temperature 99.6 F 98.7 F Pulse Rate 92 96 Respiratory 16 20 16 Rate Blood Pressure 98/52 96/61 (mmHg) O2 Sat by Pulse 100 98 Oximetry Oxygen Devices in Use Now: None Appearance: NAD, sitting up in a chair Ears/Nose/Mouth/Throat: Mucous Membranes Moist Respiratory: Symmetrical Chest Expansion and Respiratory Effort, Clear to Auscultation Cardiovascular: NL Sounds; No Murmurs; No JVD, RRR Abdominal: NL Sounds; No Tenderness; No Distention Extremities: - - Mild edema to right hip/LE Skin: No Rash or Ulcers Neurological: NL Muscle Strength and Tone, - - Alert and Oriented to Person and Place. Lines/Tubes/Other Access: Clean, Dry and Intact Peripheral IV - site benign Nutrition: Taking PO's Result Diagrams: 11/24/17 05:36 11/23/17 05:04 Microbiology and Other Data: Microbiology 11/21/17 02:45 Urine Culture - Final Urine No Growth (<1,000 CFU/mL) Assess/Plan/Problems-Billing Assessment: Ms. Mitchell is a 67 yo female with PMH significant for possible dementia who presented to the emergency room after an unwitnessed fall at home resulting in a right hip fracture. - Patient Problems (1) Fracture of femoral neck, right Code(s): S72.001A - FRACTURE OF UNSP PART OF NECK OF RIGHT FEMUR, INIT SNOMED Code(s): 6252531 Comment: - S/P right hip hemiarthroplsty, POD 3 - Management per ortho - Continue PT/OT - Continue pain management and bowel regimen (2) Anemia Code(s): D64.9 - ANEMIA, UNSPECIFIED SNOMED Code(s): 846270214 Comment: - Acute blood loss anemia - HH stable, but continues to be hypotensive and tachycardic - Received 2 unit of PRBCs so far and will give another unit today - Continue to monitor HH (3) Malnutrition Code(s): E46 - UNSPECIFIED PROTEIN-CALORIE MALNUTRITION SNOMED Code(s): 83448512 Comment: - Suspect chronic illness (dementia) vs social/environmental - Nutrition consult, input appreciated - Continue ensure supplement - Will get a 48 hour calorie count (4) Altered mental status Code(s): R41.82 - ALTERED MENTAL STATUS, UNSPECIFIED SNOMED Code(s): 983706626 Comment: - Improving daily - Delirium vs dementia - Suspect this is her baseline dementia - Work-up negative at this time (includes labs and brain CT) - Neurology consult, input appreciated - Continue supportive care (5) Abdominal distention Code(s): R14.0 - ABDOMINAL DISTENSION (GASEOUS) SNOMED Code(s): 62144725 Comment: - Resolved (6) Hypomagnesemia Code(s): E83.42 - HYPOMAGNESEMIA SNOMED Code(s): 914983945 Comment: - Resolved (7) Hyponatremia Code(s): E87.1 - HYPO-OSMOLALITY AND HYPONATREMIA SNOMED Code(s): 32642058 Comment: - Resolved - Suspect secondary to dehydration (8) Elevated lactic acid level Code(s): R79.89 - OTHER SPECIFIED ABNORMAL FINDINGS OF BLOOD CHEMISTRY SNOMED Code(s): 3454209 Comment: - Resolved - No signs of infection at this time, suspect secondary to stress from fall vs dehydration (9) DVT prophylaxis Code(s): MNQ7224 - SNOMED Code(s): 487095230 Comment: - Eliquis per Ortho (10) Full code status Code(s): Z78.9 - OTHER SPECIFIED HEALTH STATUS SNOMED Code(s): 030034860 Status and Disposition: Inpatient. Plan for discharge to [facility] in the AM after she received another unit of blood today.
--- NOTE | 2017-11-24 15:15 | PN ---
Progress Note - Progress Note Date of Service: 11/24/17 SOAP: Subjective: []Patient seen at bedside. She feels well and has no complaints. Denies right hip pain, chest pain, shortness of breath, dizziness, leg numbness. Objective: [] Vital Signs Temp 98.7 F 11/24/17 11:18 Pulse 96 11/24/17 11:18 Resp 16 11/24/17 11:18 BP 96/61 11/24/17 11:18 Pulse Ox 98 11/24/17 11:18 Intake & Output 11/23/17 11/24/17 11/24/17 18:59 06:59 18:59 Intake Total 1690 880 720 Output Total 150 725 450 Balance 1540 155 270 Weight 91 lb 6.4 oz Intake: IV Fluids 980 NS (0.9%) 980 IVPB 50 ABX - CEFAZOLIN 50 Oral 660 600 720 Packed Cells 280 Output: Urine 150 725 450 Other: Estimated Void Small Date of Last Bowel 11/23/2017 Movement # Bowel Movements 1 Estimated Stool Amount Small Small Small # Voids 1 Laboratory Last Values WBC 5.0 10^3/ul (3.5-10.8) 11/22/17 05:20 RBC 2.96 10^6/ul (4.0-5.4) L 11/22/17 05:20 Hgb 8.0 g/dl (12.0-16.0) L 11/24/17 05:36 Hct 23 % (35-47) L 11/24/17 05:36 MCV 90 fL (80-97) 11/22/17 05:20 MCH 31 pg (27-31) 11/22/17 05:20 MCHC 35 g/dl (31-36) 11/22/17 05:20 RDW 19 % (10.5-15) H 11/22/17 05:20 Plt Count 104 10^3/ul (150-450) L 11/22/17 05:20 MPV 8.7 um3 (7.4-10.4) 11/22/17 05:20 Neut % (Auto) 80.3 % (38-83) 11/22/17 05:20 Lymph % (Auto) 10.8 % (25-47) L 11/22/17 05:20 Ness % (Auto) 8.3 % (0-7) H 11/22/17 05:20 Eos % (Auto) 0.2 % (0-6) 11/22/17 05:20 Baso % (Auto) 0.4 % (0-2) 11/22/17 05:20 Absolute Neuts (auto) 4.0 10^3/ul (1.5-7.7) 11/22/17 05:20 Absolute Lymphs (auto) 0.5 10^3/ul (1.0-4.8) L 11/22/17 05:20 Absolute Monos (auto) 0.4 10^3/ul (0-0.8) 11/22/17 05:20 Absolute Eos (auto) 0 10^3/ul (0-0.6) 11/22/17 05:20 Absolute Basos (auto) 0 10^3/ul (0-0.2) 11/22/17 05:20 Absolute Nucleated RBC 0 10^3/ul 11/22/17 05:20 Nucleated RBC % 0 11/22/17 05:20 INR (Anticoag Therapy) 0.82 (0.77-1.02) 11/20/17 21:40 APTT 27.8 seconds (26.0-36.3) 11/20/17 21:40 Sodium 138 mmol/L (139-145) L 11/23/17 05:04 Potassium 4.1 mmol/L (3.5-5.0) 11/23/17 05:04 Chloride 110 mmol/L (101-111) 11/23/17 05:04 Carbon Dioxide 25 mmol/L (22-32) 11/23/17 05:04 Anion Gap 3 mmol/L (2-11) 11/23/17 05:04 BUN 12 mg/dL (6-24) 11/23/17 05:04 Creatinine 0.63 mg/dL (0.51-0.95) 11/23/17 05:04 Est GFR ( Amer) 122.0 (>60) 11/23/17 05:04 Est GFR (Non-Af Amer) 94.8 (>60) 11/23/17 05:04 BUN/Creatinine Ratio 19.0 (8-20) 11/23/17 05:04 Glucose 98 mg/dL (70-100) 11/23/17 05:04 Lactic Acid 1.3 mmol/L (0.5-2.0) 11/21/17 08:17 Calcium 7.4 mg/dL (8.6-10.3) L 11/23/17 05:04 Magnesium 2.0 mg/dL (1.9-2.7) 11/22/17 05:20 Total Bilirubin 0.60 mg/dL (0.2-1.0) 11/20/17 21:40 AST 35 U/L (13-39) 11/20/17 21:40 ALT 27 U/L (7-52) 11/20/17 21:40 Alkaline Phosphatase 41 U/L (34-104) 11/20/17 21:40 Ammonia 46 mcmol/L (16-53) 11/24/17 05:39 Total Creatine Kinase 155 U/L (10-223) 11/21/17 08:17 Troponin I 0.00 ng/mL (<0.04) 11/21/17 02:55 B-Natriuretic Peptide 131 pg/mL (-100) H 11/20/17 21:40 Total Protein 6.6 g/dL (6.4-8.9) 11/20/17 21:40 Albumin 3.7 g/dL (3.2-5.2) 11/20/17 21:40 Globulin 2.9 g/dL (2-4) 11/20/17 21:40 Albumin/Globulin Ratio 1.3 (1-3) 11/20/17 21:40 Vitamin B12 453 pg/mL (180-914) 11/21/17 02:54 TSH 1.62 mcIU/mL (0.34-5.60) 11/24/17 05:39 Urine Color Yellow 11/21/17 02:45 Urine Appearance Clear 11/21/17 02:45 Urine pH 5.0 (5-9) 11/21/17 02:45 Ur Specific [place] 1.020 (1.010-1.030) 11/21/17 02:45 Urine Protein Negative (Negative) 11/21/17 02:45 Urine Ketones Negative (Negative) 11/21/17 02:45 Urine Blood 2+ (Negative) A 11/21/17 02:45 Urine Nitrate Negative (Negative) 11/21/17 02:45 Urine Bilirubin Negative (Negative) 11/21/17 02:45 Urine Urobilinogen Negative (Negative) 11/21/17 02:45 Ur Leukocyte Esterase Negative (Negative) 11/21/17 02:45 Urine WBC (Auto) Trace(0-5/hpf) (Absent) 11/21/17 02:45 Urine RBC (Auto) 2+(6-10/hpf) (Absent) A 11/21/17 02:45 Ur Squamous Epith Cells Present (Absent) A 11/21/17 02:45 Urine Bacteria 1+ (Absent) A 11/21/17 02:45 Urine Glucose 2+(150 mg/dl) (Negative) A 11/21/17 02:45 Salicylates < 2.50 mg/dL (<30) 11/20/17 21:40 Urine Opiates Screen Presumptive positive (None Detect) A 11/21/17 02:45 Acetaminophen < 15 mcg/mL 11/20/17 21:40 Ur Barbiturates Screen None detected (None Detect) 11/21/17 02:45 Ur Phencyclidine Scrn None detected (None Detect) 11/21/17 02:45 Ur Amphetamines Screen None detected (None Detect) 11/21/17 02:45 U Benzodiazepines Scrn None detected (None Detect) 11/21/17 02:45 Urine Cocaine Screen None detected (None Detect) 11/21/17 02:45 U Cannabinoids Screen None detected (None Detect) 11/21/17 02:45 Serum Alcohol < 10 mg/dL (<10) 11/20/17 21:40 Syphilis IgG Antibody Nonreactive (Nonreactive) 11/24/17 05:39 Blood Type A Positive 11/21/17 14:08 Antibody Screen Negative 11/21/17 14:08 Crossmatch See Detail 11/24/17 05:36 General: Well appearing, NAD. RLE: Dressing changed. Incision CDI without erythema, edema or discharge. DF/PF intact. Sensation intact distally. DP2+. Knee immobilizer in place. BL LE: Calves supple and nontender without erythema, edema or palpable cords Assessment: []s/p right hemiarthroplasty bipolar by Dr. Rice 11/21/2017 Plan: - DVT prophylaxis- Eliquis. - Continue PT/ OT - Follow up with Dr. Rice within 10-14 days post-op - H&H continues to be low, 1 unit PRBC today - Hip spica ordered from [facility], not yet arrived. Will maintain use of spica for 3 months post op. - Hip precautions - Plan for D/C tomorrow - Needs neuro follow up outpatient
--- NOTE | 2017-11-24 20:42 | PN ---
FOLLOWUP NOTE: DATE OF FOLLOWUP: 11/24/17 HISTORY: No acute overnight events. Ms. Mitchell underwent her MRI, which I reviewed and showed some atrophy out of proportion for her age, but otherwise was relatively unremarkable with evidence of some small vessel disease. Her daughter feels that she is a little bit improved today in terms of her mental status. When I visited Ms. Mitchell earlier when her daughter was not present, she was eating her lunch and was using her hands rather than utensils. MEDICATIONS: Include: 1. Tylenol 975 mg q.6 hours. 2. Eliquis 2.5 mg b.i.d. 3. Dulcolax suppository as needed. 4. Oxycodone 5 mg q.4 hours p.r.n., which she has not used. 5. MiraLAX p.r.n. 6. Enemas p.r.n. PHYSICAL EXAM: Vital Signs: Temperature 98.7, blood pressure 96/61, heart rate 96, oxygen saturation 98% on room air. On general exam, Ms. Mitchell was seated in the chair next to her bedside watching a movie on the laptop. She is in no acute distress. Her eyesight seemed to be a bit better today in that she was able to count fingers and track my hand, but she still had great difficulty naming any objects on the stroke cards and was unable to do so. She was oriented to place, but not to time. She states her date of incorrectly as well stating it as 54. She thinks the season is maryam. Versions were full without any nystagmus, but pursuits are choppy and she has impersistence in extremes of gaze. Her face is symmetric. She has a right pronator drift. Strength is antigravity in the arms and in the left leg. Right leg not tested secondary to her recent surgery. LABORATORY DATA: Her ammonia was 46. TSH 1.62. RPR was negative. DIAGNOSTIC STUDIES: Brain MRI was personally reviewed as described in the HPI. IMPRESSION: Comfort Mitchell is a 67-year-old woman with dementia. I looked in our outpatient records yesterday and Ms. Mitchell does not appear to have ever seen Dr. Barrios as an outpatient, but he did evaluate her in the hospital in 2012 for memory problems at which point she scored 24/30 on her MMSE. I reviewed with the daughter that I do not see a treatable cause for dementia or reversible cause at this point. She would benefit from an outpatient referral to Neurology once she has completed her rehab and is settled in her new home with her daughter. The PCP could arrange for this at the appropriate time. If I can be of any further assistance during Ms. Mitchell's hospitalization, please do not hesitate to contact me. [id number]/[facility] #: [id number] STEFANY
[2017-11-25] MEDS: Acetaminophen TAB* 325 MG PO SCH ×4 (03:56→22:02)
[2017-11-25 05:32] LABS: Hematocrit 27 % (35-47); Hemoglobin 9.6 g/dl (12.0-16.0)
[2017-11-25 05:48] LABS: EGFR Non-African American 110.9 (>60)
[2017-11-25] MEDS: Apixaban* 2.5 MG TAB PO SCH ×2 (10:06→22:02)
--- NOTE | 2017-11-25 15:26 | PN ---
Progress Note - Progress Note Date of Service: 11/25/17 SOAP: Subjective: []Patient seen at bedside. She is comfortable without RLE pain, CP, SOB, dizzness or nausea. She is very pleased with her care thus far. Objective: [] Laboratory Last Values WBC 5.0 10^3/ul (3.5-10.8) 11/22/17 05:20 RBC 2.96 10^6/ul (4.0-5.4) L 11/22/17 05:20 Hgb 9.6 g/dl (12.0-16.0) L 11/25/17 05:22 Hct 27 % (35-47) L 11/25/17 05:22 MCV 90 fL (80-97) 11/22/17 05:20 MCH 31 pg (27-31) 11/22/17 05:20 MCHC 35 g/dl (31-36) 11/22/17 05:20 RDW 19 % (10.5-15) H 11/22/17 05:20 Plt Count 104 10^3/ul (150-450) L 11/22/17 05:20 MPV 8.7 um3 (7.4-10.4) 11/22/17 05:20 Neut % (Auto) 80.3 % (38-83) 11/22/17 05:20 Lymph % (Auto) 10.8 % (25-47) L 11/22/17 05:20 Garvin % (Auto) 8.3 % (0-7) H 11/22/17 05:20 Eos % (Auto) 0.2 % (0-6) 11/22/17 05:20 Baso % (Auto) 0.4 % (0-2) 11/22/17 05:20 Absolute Neuts (auto) 4.0 10^3/ul (1.5-7.7) 11/22/17 05:20 Absolute Lymphs (auto) 0.5 10^3/ul (1.0-4.8) L 11/22/17 05:20 Absolute Monos (auto) 0.4 10^3/ul (0-0.8) 11/22/17 05:20 Absolute Eos (auto) 0 10^3/ul (0-0.6) 11/22/17 05:20 Absolute Basos (auto) 0 10^3/ul (0-0.2) 11/22/17 05:20 Absolute Nucleated RBC 0 10^3/ul 11/22/17 05:20 Nucleated RBC % 0 11/22/17 05:20 INR (Anticoag Therapy) 0.82 (0.77-1.02) 11/20/17 21:40 APTT 27.8 seconds (26.0-36.3) 11/20/17 21:40 Sodium 139 mmol/L (139-145) 11/25/17 05:22 Potassium 4.5 mmol/L (3.5-5.0) 11/25/17 05:22 Chloride 110 mmol/L (101-111) 11/25/17 05:22 Carbon Dioxide 27 mmol/L (22-32) 11/25/17 05:22 Anion Gap 2 mmol/L (2-11) 11/25/17 05:22 BUN 16 mg/dL (6-24) 11/25/17 05:22 Creatinine 0.55 mg/dL (0.51-0.95) 11/25/17 05:22 Est GFR ( Amer) 142.7 (>60) 11/25/17 05:22 Est GFR (Non-Af Amer) 110.9 (>60) 11/25/17 05:22 BUN/Creatinine Ratio 29.1 (8-20) H 11/25/17 05:22 Glucose 98 mg/dL (70-100) 11/25/17 05:22 Lactic Acid 1.3 mmol/L (0.5-2.0) 11/21/17 08:17 Calcium 8.0 mg/dL (8.6-10.3) L 11/25/17 05:22 Phosphorus 1.5 mg/dL (2.5-5.0) L 11/25/17 05:22 Magnesium 1.8 mg/dL (1.9-2.7) L 11/25/17 05:22 Total Bilirubin 0.60 mg/dL (0.2-1.0) 11/20/17 21:40 AST 35 U/L (13-39) 11/20/17 21:40 ALT 27 U/L (7-52) 11/20/17 21:40 Alkaline Phosphatase 41 U/L (34-104) 11/20/17 21:40 Ammonia 46 mcmol/L (16-53) 11/24/17 05:39 Total Creatine Kinase 155 U/L (10-223) 11/21/17 08:17 Troponin I 0.00 ng/mL (<0.04) 11/21/17 02:55 B-Natriuretic Peptide 131 pg/mL (-100) H 11/20/17 21:40 Total Protein 6.6 g/dL (6.4-8.9) 11/20/17 21:40 Albumin 3.7 g/dL (3.2-5.2) 11/20/17 21:40 Globulin 2.9 g/dL (2-4) 11/20/17 21:40 Albumin/Globulin Ratio 1.3 (1-3) 11/20/17 21:40 Vitamin B12 453 pg/mL (180-914) 11/21/17 02:54 TSH 1.62 mcIU/mL (0.34-5.60) 11/24/17 05:39 Urine Color Yellow 11/21/17 02:45 Urine Appearance Clear 11/21/17 02:45 Urine pH 5.0 (5-9) 11/21/17 02:45 Ur Specific [place] 1.020 (1.010-1.030) 11/21/17 02:45 Urine Protein Negative (Negative) 11/21/17 02:45 Urine Ketones Negative (Negative) 11/21/17 02:45 Urine Blood 2+ (Negative) A 11/21/17 02:45 Urine Nitrate Negative (Negative) 11/21/17 02:45 Urine Bilirubin Negative (Negative) 11/21/17 02:45 Urine Urobilinogen Negative (Negative) 11/21/17 02:45 Ur Leukocyte Esterase Negative (Negative) 11/21/17 02:45 Urine WBC (Auto) Trace(0-5/hpf) (Absent) 11/21/17 02:45 Urine RBC (Auto) 2+(6-10/hpf) (Absent) A 11/21/17 02:45 Ur Squamous Epith Cells Present (Absent) A 11/21/17 02:45 Urine Bacteria 1+ (Absent) A 11/21/17 02:45 Urine Glucose 2+(150 mg/dl) (Negative) A 11/21/17 02:45 Salicylates < 2.50 mg/dL (<30) 11/20/17 21:40 Urine Opiates Screen Presumptive positive (None Detect) A 11/21/17 02:45 Acetaminophen < 15 mcg/mL 11/20/17 21:40 Ur Barbiturates Screen None detected (None Detect) 11/21/17 02:45 Ur Phencyclidine Scrn None detected (None Detect) 11/21/17 02:45 Ur Amphetamines Screen None detected (None Detect) 11/21/17 02:45 U Benzodiazepines Scrn None detected (None Detect) 11/21/17 02:45 Urine Cocaine Screen None detected (None Detect) 11/21/17 02:45 U Cannabinoids Screen None detected (None Detect) 11/21/17 02:45 Serum Alcohol < 10 mg/dL (<10) 11/20/17 21:40 Syphilis IgG Antibody Nonreactive (Nonreactive) 11/24/17 05:39 Blood Type A Positive 11/24/17 05:36 Antibody Screen Negative 11/24/17 05:36 Crossmatch See Detail 11/24/17 05:36 Vital Signs Temp 98.3 F 11/25/17 07:31 Pulse 80 11/25/17 07:31 Resp 16 11/25/17 08:00 BP 96/59 11/25/17 07:31 Pulse Ox 100 11/25/17 07:31 Intake & Output 11/24/17 11/25/17 11/25/17 18:59 06:59 18:59 Intake Total 960 680 325 Output Total 450 1500 Balance 510 -820 325 Intake: Oral 960 360 325 Packed Cells 320 Output: Urine 450 1500 Other: Estimated Void Medium Medium Date of Last Bowel 11/25/17 Movement # Bowel Movements 1 1 Estimated Stool Amount Small Small # Voids 1 1 General: Well appearing, NAD. RLE: Dressing changed. Incision CDI without erythema, edema or discharge. DF/PF intact. Sensation intact distally. DP2+. Knee immobilizer and abduction pillow in place. BL LE: Calves supple and nontender without erythema, edema or palpable cords Assessment: []s/p right hemiarthroplasty bipolar by Dr. Rice 11/21/2017 Plan: - DVT prophylaxis- Eliquis. - Continue PT/ OT - Follow up with Dr. Rice within 10-14 days post-op - Hip spica ordered from [facility], not yet arrived. Will maintain use of spica for 3 months post op. - Hip precautions - May DC when medically ready - Appreciate neuro consult. Needs neuro follow up outpatient when settled into home with her daughter. No treatable cause of dementia identified.
--- NOTE | 2017-11-25 16:50 | PN ---
Subjective Date of Service: 11/25/17 Interval History: No acute overnight events. Patient feeling well, pain tolerable. No complaints. Family History: Unchanged from Admission Social History: Unchanged from Admission Past Medical History: Unchanged from Admission Objective Active Medications: Acetaminophen (Tylenol Tab*) 975 mg PO Q6H [facility] Last Admin: 11/25/17 16:44 Dose: 975 mg Apixaban (Eliquis) 2.5 mg PO BID [facility] Last Admin: 11/25/17 10:06 Dose: 2.5 mg Bisacodyl (Dulcolax Supp*) 10 mg AK DAILY PRN PRN Reason: CONSTIPATION Last Admin: 11/22/17 17:06 Dose: 10 mg Oxycodone HCl (Roxycodone Tab*) 5 mg PO Q4H PRN PRN Reason: PAIN - UNCONTROLLED Polyethylene Glycol/Electrolytes (Miralax*) 17 gm PO DAILY PRN PRN Reason: CONSTIPATION Last Admin: 11/24/17 09:01 Dose: 17 gm Sodium Biphosphate/Sodium Phosphate (Fleet Enema*) 1 bottle AK DAILY PRN PRN Reason: CONSTIPATION Last Admin: 11/22/17 18:09 Dose: 1 bottle Oxygen Devices in Use Now: None Appearance: alert, NAD Ears/Nose/Mouth/Throat: Mucous Membranes Moist Neck: NL Appearance and Movements; NL JVP, Trachea Midline Respiratory: Symmetrical Chest Expansion and Respiratory Effort, Clear to Auscultation Cardiovascular: NL Sounds; No Murmurs; No JVD, RRR Abdominal: NL Sounds; No Tenderness; No Distention Extremities: No Clubbing, Cyanosis Neurological: - - alert, confused at baseline Nutrition: Taking PO's Result Diagrams: 11/25/17 05:22 11/25/17 05:22 Microbiology and Other Data: Microbiology 11/21/17 02:45 Urine Culture - Final Urine No Growth (<1,000 CFU/mL) Assess/Plan/Problems-Billing Assessment: Ms. Mitchell is a 67 yo female with PMH significant for possible dementia who presented to the emergency room after an unwitnessed fall at home resulting in a right hip fracture. - Patient Problems (1) Fracture of femoral neck, right Code(s): S72.001A - FRACTURE OF UNSP PART OF NECK OF RIGHT FEMUR, INIT SNOMED Code(s): 2523937 Comment: - S/P right hip hemiarthroplsty, POD4 - Management per ortho - Continue PT/OT - Continue pain management and bowel regimen (2) Altered mental status Code(s): R41.82 - ALTERED MENTAL STATUS, UNSPECIFIED SNOMED Code(s): 991563868 Comment: - Improving daily - Likely dementia with superimprosed delerium, etiology unclear - Neuro consult appreciated, CT negative - Supportive care (3) Anemia Code(s): D64.9 - ANEMIA, UNSPECIFIED SNOMED Code(s): 241320764 Comment: - Acute blood loss anemia - H&H improved after 3 units PRBCs (4) Elevated lactic acid level Current Visit: Yes Status: Acute Code(s): R79.89 - OTHER SPECIFIED ABNORMAL FINDINGS OF BLOOD CHEMISTRY SNOMED Code(s): 1628132 Comment: - Resolved - No signs of infection at this time, suspect secondary to stress from fall vs dehydration (5) Hypomagnesemia Code(s): E83.42 - HYPOMAGNESEMIA SNOMED Code(s): 181693596 Comment: - Resolved with repleteion - Continue nutritional support (6) Hyponatremia Code(s): E87.1 - HYPO-OSMOLALITY AND HYPONATREMIA SNOMED Code(s): 41465826 Comment: - Resolved - Suspect secondary to dehydration (7) Malnutrition SNOMED Code(s): 07701521 Comment: - Suspect chronic illness (dementia) with extensive social/environmental factors/neglect? - Nutrition consult and support - Per records, APS involved (8) DVT prophylaxis Code(s): ZHD1377 - SNOMED Code(s): 326389371 Comment: - Eliquis as per Ortho (9) Full code status Code(s): Z78.9 - OTHER SPECIFIED HEALTH STATUS SNOMED Code(s): 254019244 Status and Disposition: Inpatient. Plan for discharge to [facility] after spica received, likely tomorrow.
[2017-11-26] MEDS: Acetaminophen TAB* 325 MG PO SCH ×3 (03:20→14:24)
--- NOTE | 2017-11-26 08:08 | PN ---
Progress Note - Progress Note Date of Service: 11/26/17 SOAP: Subjective: 67 y/o female s/p R hip hemiarthroplasty by Dr. Rice 11/21. Patient continues to be demented. VSS HR improved, afebrile overnight tmax 100.4. Objective: General- Well appearing, NAD, AO Resting in bed comfortably eating breakfast. Vital Signs Temp 97.6 F 11/26/17 07:44 Pulse 73 11/26/17 07:44 Resp 16 11/26/17 07:44 BP 97/61 11/26/17 07:44 Pulse Ox 100 11/26/17 07:44 Intake & Output 11/25/17 11/26/17 11/26/17 18:59 06:59 18:59 Intake Total 325 1680 460 Output Total 1800 350 Balance 325 -120 110 Intake: Oral 325 1680 460 Output: Urine 1800 350 Other: Estimated Void Large Large # Bowel Movements 1 1 1 Estimated Stool Amount Small Small Small # Voids 1 1 Assessment: Stable 67 y/o female s/p R hip hemiarthroplasty by Dr. Rice 11/21. Plan: - DVT prophylaxis- Eliquis - Continue PT/ OT - Follow up with Dr. Rice within 10-14 days post-op - H&H - Transfused 11/21, 11/23, 11/24- currently H&H stable - post-op IV ABX - Completed. - Hip spica ordered from [facility], not yet arrived. Will maintain use of spica for 3 months post op. May D/C when available. - Hip precautions - May DC when medically ready- to [facility] - Appreciate neuro consult. Needs neuro follow up outpatient when settled into home with her daughter. No treatable cause of dementia identified. Acetaminophen (Tylenol Tab*) 975 mg PO Q6H [facility] Last Admin: 11/26/17 09:25 Dose: 975 mg Apixaban (Eliquis) 2.5 mg PO BID [facility] Last Admin: 11/26/17 09:26 Dose: 2.5 mg Bisacodyl (Dulcolax Supp*) 10 mg HI DAILY PRN PRN Reason: CONSTIPATION Last Admin: 11/22/17 17:06 Dose: 10 mg Oxycodone HCl (Roxycodone Tab*) 5 mg PO Q4H PRN PRN Reason: PAIN - UNCONTROLLED Polyethylene Glycol/Electrolytes (Miralax*) 17 gm PO DAILY PRN PRN Reason: CONSTIPATION Last Admin: 11/24/17 09:01 Dose: 17 gm Sodium Biphosphate/Sodium Phosphate (Fleet Enema*) 1 bottle HI DAILY PRN PRN Reason: CONSTIPATION Last Admin: 11/22/17 18:09 Dose: 1 bottle
[2017-11-26] MEDS: Apixaban* 2.5 MG TAB PO SCH (09:26)
[2017-11-26 16:06] VITALS: BP 106/55
--- NOTE | 2017-11-26 17:06 | DS ---
AMENDED REPORT NOW INCLUDES COSIGNER DESIGNATION - ESIGNED BEFORE ADJUSTMENT CC: Dr. Rice * DISCHARGE SUMMARY: DATE OF ADMISSION: 11/21/17 DATE OF DISCHARGE: 11/26/17 ATTENDING FOR THIS ADMISSION: Cheli Torrez DO. MY ATTENDING FOR TODAY: Dr. Rose Brown.* (DICTATED BY TAYLOR KIM , JANAK) PRIMARY CARE PHYSICIAN: She does not have one. HOSPITAL COURSE: This is a 67-year-old female patient with a history of dementia, who was living in very difficult circumstances. She did not have contact with family. Apparently, there was either some friends or roommates or significant other in house with her and supposed to be having some assistive care, however, it was told to the EMS providers that she was found on the floor with angulation of her leg. She was screaming incoherently. At that time, she was brought to the emergency department and was also noted that the home living conditions were quite unsanitary, there animal feces throughout the house, garbage, and it appears that the patient was also covered in dirt and feces and had likely not eaten and had not received any care in some time. The patient again she do not have contact with her family. She has a son and a daughter that were notified through case management, who then came to the hospital subsequently to assist in their mother's care. It was found that the patient did have a right femoral neck fracture. Her pain was treated. She was seen by Orthopedics and she underwent hemiarthroplasty of the right hip. The patient had some continued delirium superimposed on her dementia. It is questionable whether she had some acute encephalopathy on top of regular dementia. The rest of her workup other than malnutrition did not show any further metabolic cause for her delirium. The patient's family stated that she did have some ongoing dementia that apparently was getting worse. She was seen by Neurology who also concurred that the patient had baseline dementia that was probably exacerbated by pain, fracture, malnutrition, and other environmental factors. The patient has recuperated well from her surgery. She has had an uneventful postoperative course. She was readied for discharge and cleared today by Orthopedics. Plan at this time, the patient does not have capacity to act on her own behalf secondary to her dementia and take care of her financial affairs. Her daughter , has stepped in and has assisted with her transitional plan of care. The daughter is in agreement that the patient should to go to [facility] for additional rehabilitation. She was fitted for a spica brace and she is on hip precautions for the next three months. The spica brace will be delivered today and then she can be discharged to [facility] shortly thereafter. DISCHARGE DIAGNOSES: 1. Right femoral neck fracture status post right hemiarthroplasty. 2. Delirium on dementia. 3. Hyponatremia and lactic acidosis. 4. Malnutrition. 5. Unstable home environment. MEDICATIONS FOR DISCHARGE: 1. Oxycodone 5 mg q.6 hours as needed. 2. MiraLAX 17 g daily as needed. 3. Dulcolax 10 mg as daily needed. 4. Apixaban 2.5 mg p.o. two times daily. 5. Tylenol 975 mg q.6 hours as needed. PHYSICAL EXAM ON DAY OF DISCHARGE: Vital Signs: Blood pressure 99/56, heart rate 79, respiratory rate 18, satting at 100% on room air, temperature 98.0. HEENT: The patient is atraumatic and normocephalic. PERRLA with nonicteric sclerae. Neck is supple, nontender. No JVD noted. No carotid bruit auscultated. Lungs: Clear bilaterally to auscultation with no wheezing, rhonchi, or rales. Cardiovascular: S1, S2 present. Rate and rhythm are regular. No murmurs, gallops, or rubs. Abdomen: Soft. Moderately distended. Nontender. Positive bowel sounds in all 4 quadrants. No pain or no organomegaly noted. Musculoskeletal: There is no clubbing and no cyanosis. She has good pulses distal to her surgical site. There is no edema and no erythema. Her dressing is clean, dry, and intact. She is participating with physical therapy with no difficulties. Neurologic: She is baseline confused, but appropriate and able to be redirected. Psychiatric: She is cooperative and appropriate. LABORATORY DATA: WBC 5.0, RBC 2.96, hemoglobin 9.6, hematocrit 27, and platelets 104. Sodium 139, potassium 4.5, chloride 110, CO2 of 27, BUN 16, creatinine 0.55. GFR 110.9. Glucose 98, calcium 8.0, magnesium 2.0, phosphorus 1.5. TSH 1.62. DISPOSITION PLANNING: The patient will be discharged to [facility] today by ambulance transport. Her daughter is her primary healthcare proxy and will be handling her affairs going forward. Plan is for the patient to go to rehab and then be discharged in the daughter's care in her home. APS has been involved with this case. We will continue to follow the patient in the outpatient setting. The patient should be following up with Dr. Rice, the orthopedist in 10 to 14 days for suture removal. In terms of primary care, it is my understanding that the patient will be following up with her daughter's primary care physician, they will be making that decision after she is discharged from rehab. The patient was discharged in stable condition. All questions were answered. Daughter is in agreement with her plan of care. TAYLOR KIM NP [id number]/[facility] #: [id number] STEFANY
== END 2017-11-26 18:03 | DRG 470 ==
LOC: ED 19:52 → MED 11-21 02:35 → SSU 11-21 20:29
PROVIDERS: ADMIT Internal Medicine; ATTEND Student in an Organized Health Care Education/Training Program
PROC: 0SRR0JA Replacement of Right Hip Joint, Femoral Surface with Synthetic Substitute, Uncemented, Open Approach (ICD-10-PCS; 2017-11-21)
PROC: 30233N1 Transfusion of Nonautologous Red Blood Cells into Peripheral Vein, Percutaneous Approach (ICD-10-PCS; principal; 2017-11-21 15:07)
DX: S72.001A Fracture of unspecified part of neck of right femur, initial encounter for closed fracture (principal); E87.1 Hypo-osmolality and hyponatremia; D62 Acute posthemorrhagic anemia; E46 Unspecified protein-calorie malnutrition; F05 Delirium due to known physiological condition; E87.2 Acidosis; Z68.1 Body mass index [BMI] 19.9 or less, adult; W17.89XA Other fall from one level to another, initial encounter; E86.0 Dehydration; K21.9 Gastro-esophageal reflux disease without esophagitis; F02.80 Dementia in other diseases classified elsewhere, unspecified severity, without behavioral disturbance, psychotic disturbance, mood disturbance, and anxiety; R14.0 Abdominal distension (gaseous); E83.42 Hypomagnesemia; R79.89 Other specified abnormal findings of blood chemistry; I95.9 Hypotension, unspecified; Y92.002 Bathroom of unspecified non-institutional (private) residence as the place of occurrence of the external cause; Z81.8 Family history of other mental and behavioral disorders; Z90.49 Acquired absence of other specified parts of digestive tract; Z72.89 Other problems related to lifestyle; Z82.3 Family history of stroke; Z82.0 Family history of epilepsy and other diseases of the nervous system; Z79.01 Long term (current) use of anticoagulants
CPT/HCPCS: 36415; 70450; 70551; 71045; 72170; 72192; 80048; 80053; 80307; 80320; 80329; 81003; 81015; 82140; 82550; 82607; 83605; 83735; 83880; 84100; 84443; 84484; 85014; 85018; 85025; 85610; 85730; 86592; 86850; 86900; 86901; 86922; 87040; 87086; 88305; 88311; 93005; 99285; A9270-GY; C1776; G0480; J0690; J1100; J1200; J1650; J2250; J2270; J2405; J2704; J3010; J3475; P9040

== ENCOUNTER 2017-11-29 00:13 | Emergency (ER) | payer MEDICARE ==
[2017-11-29] MEDS ORDERED: Acetaminophen TAB* 325 MG PO ONE (00:32)
[2017-11-29 01:04] LABS: ABS Basophils 0.1 10^3/ul (0-0.2); ABS Eosinophils 0.8 10^3/ul (0-0.6); ABS Lymphocytes 0.8 10^3/ul (1.0-4.8); ABS Monocytes 0.7 10^3/ul (0-0.8); ABS Neutrophils 3.7 10^3/ul (1.5-7.7); ABS Nucleated RBC 0 10^3/ul; Eosinophil % 13.7 % (0-6); Hematocrit 24 % (35-47); Hemoglobin 8.3 g/dl (12.0-16.0); Lymphocyte % 13.6 % (25-47); Mean Corpuscular HGB Conc 34 g/dl (31-36); Mean Corpuscular Hemoglobin 31 pg (27-31); Mean Corpuscular Volume 92 fL (80-97); Mean Platelet Volume 6.7 um3 (7.4-10.4); Nucleated Red Blood Cells % 0; Platelet Count 345 10^3/ul (150-450); Red Blood Count 2.65 10^6/ul (4.0-5.4); Red Cell Distribution Width 17 % (10.5-15)
[2017-11-29 01:19] LABS: INR 0.87 (0.77-1.02)
[2017-11-29 01:21] LABS: EGFR Non-African American 88.3 (>60)
[2017-11-29 01:35] LABS: Urine Appearance Clear; Urine Blood Negative (Negative); Urine Color Yellow; Urine Ketones Negative (Negative); Urine Protein Negative (Negative); Urine Specific Gravity 1.016 (1.010-1.030); Urine Urobilinogen Negative (Negative)
[2017-11-29 03:57] VITALS: BP 100/65
[2017-11-29] MEDS ORDERED: Levofloxacin TAB* 500 MG PO ONE (04:13)
--- NOTE | 2017-11-29 05:37 | ED ---
Bereket Vickers Gabriel, scribed for Maury [place] on 11/29/17 at 0125 . Complex/Multi-Sys Presentation - HPI Summary HPI Summary: This patient is a 67 year old F BIBA to [facility] accompanied by her daughter with a chief complaint of a general illness. Patient reports fever, cough, light headedness, and nausea. Pt had a recent right hip replacement and recently had low BP with a high heart rate. Hx dementia. - History Of Current Complaint Chief Complaint: EDFever Time Seen by Provider: 11/29/17 00:26 Hx Obtained From: Patient, Family/Social Research Assistant - daughter Onset/Duration: Still Present Timing: Constant Severity Currently: Mild Severity Initially: Mild Associated Signs And Symptoms: Positive: Other - fever, cough, light headedness - Allergies/Home Medications Allergies/Adverse Reactions: Allergies Allergy/AdvReac Type Severity Reaction Status Date / Time No Known Allergies Allergy Verified 07/26/14 12:37 PMH/Surg Hx/FS Hx/Imm Hx Endocrine/Hematology History: Denies: Hx Anticoagulant Therapy, Hx Blood Disorders, Hx Blood Transfusions, Hx Bone Marrow Disease, Hx Diabetes, Hx Systemic Lupus Erythematosus, Hx Sickle Cell Disease, Hx Thyroid Disease, Hx Anemia, Hx Unexplained Bleeding, Other Endocrine/Hematological Disorders Cardiovascular History: Denies: Hx Pacemaker/ICD GI History: Reports: Hx Gall Bladder Disease Denies: Hx Cirrhosis, Hx Crohn's Disease, Hx Diverticulosis, Hx Gastroesophageal Reflux Disease, Hx Gastrointestinal Bleed, Hx Hiatal Hernia, Hx Irritable Bowel, Hx Jaundice, Hx Obstructive Bowel, Hx Ileostomy, Hx Pyloric Stenosis, Hx Ulcer, Other GI Disorders History: Reports: Other Problems/Disorders - gallbladder and appendix removed in the Sensory History: Reports: Hx Contacts or Glasses - bifocals Denies: Hx Cataracts, Hx Eye Injury, Hx Eye Prosthesis, Hx Glaucoma, Hx Macular Degeneration, Hx Vision Problem, Hx Deafness, Hx Hearing Aid, Hx Hearing Problem, Other Sensory Impairments Opthamlomology History: Reports: Hx Contacts or Glasses - bifocals Denies: Hx Cataracts, Hx Eye Injury, Hx Eye Prosthesis, Hx Glaucoma, Hx Macular Degeneration, Hx Vision Problem, Other Sensory Impairments Neurological History: Reports: Hx Dementia - cognitive decline in 2013, Other Neuro Impairments/Disorders - short term memory loss Denies: Hx Developmental Delay, Hx Headaches, Hx Migraine, Hx Nerve Disease, Hx Seizures, Hx Spinal Cord Injury Psychiatric History: Denies: Hx Panic Disorder Comment Only: Hx Schizophrenia - Mother had schixophrenia - Surgical History Surgery Procedure, Year, and Place: APPENDIX. GALBLADDER. HIP REPLACEMENT Hx Anesthesia Reactions: No Infectious Disease History: No Infectious Disease History: Denies: Hx Hepatitis, Traveled Outside the [place] in Last 30 Days - Family History Known Family History: Negative: Cardiac Disease, Hypertension, Diabetes, Respiratory Disease - Social History Alcohol Use: None Hx Substance Use: No Substance Use Type: Reports: None Hx Tobacco Use: No Smoking Status (MU): Never Smoked Tobacco Review of Systems Positive: Fever Positive: Other - tachy w/ low BP Positive: Cough Positive: Nausea Neurological: Other - light headedness All Other Systems Reviewed And Are Negative: Yes Physical Exam - Summary Physical Exam Summary: Appearance: Well appearing, no pain distress Skin: warm, dry, reflects adequate perfusion, dressing at right hip Head/face: normal Eyes: EOMI, ENZO ENT: dry mucous membranes Neck: supple, non-tender Respiratory: CTA, breath sounds present Cardiovascular: RRR, pulses symmetrical Abdomen: non-tender, soft Bowel: present Musculoskeletal: splint at right hip, strength/ROM intact Neuro: normal, sensory motor intact, Alert and confused Triage Information Reviewed: Yes Vital Signs On Initial Exam: Initial Vitals Temp Pulse Resp BP Pulse Ox 100.5 F 104 16 104/68 98 11/29/17 00:18 11/29/17 00:18 11/29/17 00:18 11/29/17 00:18 11/29/17 00:18 Vital Signs Reviewed: Yes Diagnostics - Vital Signs Vital Signs Temp Pulse Resp BP Pulse Ox 11/29/17 00:25 104 96 11/29/17 00:23 110 104/68 96 11/29/17 00:18 100.5 F 104 16 104/68 98 - Laboratory Lab Results: Lab Results 11/29/17 11/29/17 11/29/17 Range/Units 00:30 00:30 00:30 WBC 6.0 (3.5-10.8) 10^3/ul RBC 2.65 L (4.0-5.4) 10^6/ul Hgb 8.3 L (12.0-16.0) g/dl Hct 24 L (35-47) % MCV 92 (80-97) fL MCH 31 (27-31) pg MCHC 34 (31-36) g/dl RDW 17 H (10.5-15) % Plt Count 345 (150-450) 10^3/ul MPV 6.7 L (7.4-10.4) um3 Neut % (Auto) 60.8 (38-83) % Lymph % (Auto) 13.6 L (25-47) % [place] % (Auto) 11.0 H (0-7) % Eos % (Auto) 13.7 H (0-6) % Baso % (Auto) 0.9 (0-2) % Absolute Neuts (auto) 3.7 (1.5-7.7) 10^3/ul Absolute Lymphs (auto) 0.8 L (1.0-4.8) 10^3/ul Absolute Monos (auto) 0.7 (0-0.8) 10^3/ul Absolute Eos (auto) 0.8 H (0-0.6) 10^3/ul Absolute Basos (auto) 0.1 (0-0.2) 10^3/ul Absolute Nucleated RBC 0 10^3/ul Nucleated RBC % 0 INR (Anticoag Therapy) 0.87 (0.77-1.02) APTT 28.3 (26.0-36.3) seconds Sodium 141 (139-145) mmol/L Potassium 4.4 (3.5-5.0) mmol/L Chloride 110 (101-111) mmol/L Carbon Dioxide 27 (22-32) mmol/L Anion Gap 4 (2-11) mmol/L BUN 34 H (6-24) mg/dL Creatinine 0.67 (0.51-0.95) mg/dL Est GFR ( Amer) 113.6 (>60) Est GFR (Non-Af Amer) 88.3 (>60) BUN/Creatinine Ratio 50.7 H (8-20) Glucose 111 H (70-100) mg/dL Lactic Acid (0.5-2.0) mmol/L Calcium 7.8 L (8.6-10.3) mg/dL Total Bilirubin 0.50 (0.2-1.0) mg/dL AST 31 (13-39) U/L ALT 23 (7-52) U/L Alkaline Phosphatase 48 (34-104) U/L Troponin I 0.00 (<0.04) ng/mL Total Protein 4.7 L (6.4-8.9) g/dL Albumin 2.4 L (3.2-5.2) g/dL Globulin 2.3 (2-4) g/dL Albumin/Globulin Ratio 1.0 (1-3) Influenza A (Rapid) (Negative) Influenza B (Rapid) (Negative) 11/29/17 11/29/17 Range/Units 00:30 00:53 WBC (3.5-10.8) 10^3/ul RBC (4.0-5.4) 10^6/ul Hgb (12.0-16.0) g/dl Hct (35-47) % MCV (80-97) fL MCH (27-31) pg MCHC (31-36) g/dl RDW (10.5-15) % Plt Count (150-450) 10^3/ul MPV (7.4-10.4) um3 Neut % (Auto) (38-83) % Lymph % (Auto) (25-47) % [place] % (Auto) (0-7) % Eos % (Auto) (0-6) % Baso % (Auto) (0-2) % Absolute Neuts (auto) (1.5-7.7) 10^3/ul Absolute Lymphs (auto) (1.0-4.8) 10^3/ul Absolute Monos (auto) (0-0.8) 10^3/ul Absolute Eos (auto) (0-0.6) 10^3/ul Absolute Basos (auto) (0-0.2) 10^3/ul Absolute Nucleated RBC 10^3/ul Nucleated RBC % INR (Anticoag Therapy) (0.77-1.02) APTT (26.0-36.3) seconds Sodium (139-145) mmol/L Potassium (3.5-5.0) mmol/L Chloride (101-111) mmol/L Carbon Dioxide (22-32) mmol/L Anion Gap (2-11) mmol/L BUN (6-24) mg/dL Creatinine (0.51-0.95) mg/dL Est GFR ( Amer) (>60) Est GFR (Non-Af Amer) (>60) BUN/Creatinine Ratio (8-20) Glucose (70-100) mg/dL Lactic Acid 1.0 (0.5-2.0) mmol/L Calcium (8.6-10.3) mg/dL Total Bilirubin (0.2-1.0) mg/dL AST (13-39) U/L ALT (7-52) U/L Alkaline Phosphatase (34-104) U/L Troponin I (<0.04) ng/mL Total Protein (6.4-8.9) g/dL Albumin (3.2-5.2) g/dL Globulin (2-4) g/dL Albumin/Globulin Ratio (1-3) Influenza A (Rapid) Negative (Negative) Influenza B (Rapid) Negative (Negative) Result Diagrams: 11/29/17 00:30 11/29/17 00:30 Lab Statement: Any lab studies that have been ordered have been reviewed, and results considered in the medical decision making process. - Radiology CXR Radiology Interpretation Completed By: ED Physician - no acute process - EKG 0040 Cardiac Rate: Tachycardia EKG Rhythm: Sinus Tachycardia - at 100 BPM Re-Evaluation - Re-Evaluation First Eval Re-Evaluation Time: 03:28 Change: Improved Comment: The pt's fever is 98.9F Complex Multi-Symp Course/Dx Assessment/Plan: This patient is a 67 year old F BIBA to [facility] accompanied by her daughter with a chief complaint of a general illness. Patient reports fever , cough, light headedness, and nausea. Pt had a recent right hip replacement and recently had low BP with a high heart rate. Hx dementia. An EKG reveals sinus tachycardia. CXR reveals, no acute process. Blood work and UA obtained. In the ED course the patient was given levaquin and tylenol. Patient will be discharged with prescription for levaquin and follow up from PCP. The patient is agreeable with this plan. - Diagnoses Differential Diagnoses/HQI/PQRI: Sepsis, Urinary Tract Infection, Other - fever Provider Diagnoses: Fever, Bronchitis Discharge - Sign-Out/Discharge Documenting (check all that apply): Discharge/Admit/Transfer - Discharge Plan Condition: Stable Disposition: [facility] FACILITY Prescriptions: Levofloxacin TAB* [Levaquin TAB*] 500 mg PO DAILY #9 tab Patient Education Materials: Fever in Adults (ED), Acute Bronchitis (ED) Referrals: No Primary Care Phys,NOPCP [Primary Care Provider] - Additional Instructions: RETURN TO THE EMERGENCY DEPARTMENT FOR CHANGING OR WORSENING SYMPTOMS - Billing Disposition and Condition Condition: STABLE Disposition: SNF The documentation as recorded by the Bereket antony Gabriel accurately reflects the service I personally performed and the decisions made by Peter patten Emmanuel.
--- NOTE | 2017-11-29 08:08 | RAD ---
Indication: Fever. Single frontal view of the chest performed at 0105 hours was reviewed. Comparison is made with previous exam dated November 20, 2017. No mediastinal shift is noted. Heart is of normal size and configuration. Interstitial edema consistent with vascular congestion is noted. No pleural fluid is identified. IMPRESSION: FINDINGS CONSISTENT WITH VASCULAR CONGESTION.
== END 2017-11-29 04:45 ==
LOC: ED 00:13
DX: J40 Bronchitis, not specified as acute or chronic (principal); F03.90 Unspecified dementia, unspecified severity, without behavioral disturbance, psychotic disturbance, mood disturbance, and anxiety
CPT/HCPCS: 36415; 71045; 80053; 81003; 83605; 84484; 85025; 85610; 85730; 87040; 87502; 93005; 99284; A9270-GY

== ENCOUNTER 2021-09-13 10:38 | Observation (INO) ==
[2021-09-13] MEDS ORDERED: NS 0.9% 1000 ml BAG 1,000 ML IV ONE (11:04)
[2021-09-13 11:32] LABS: ABS Basophils 0.1 10^3/ul (0-0.2); ABS Eosinophils 1.5 10^3/ul (0-0.6); ABS Lymphocytes 2.4 10^3/ul (1.0-4.8); ABS Monocytes 0.4 10^3/ul (0-0.8); ABS Neutrophils 5.6 10^3/ul (1.5-7.7); Eosinophil % 14.9 %; Hematocrit 39 % (35-47); Hemoglobin 12.9 g/dL (12.0-16.0); Lymphocyte % 23.8 %; Mean Corpuscular HGB Conc 33 g/dL (31-36); Mean Corpuscular Hemoglobin 32 pg (27-31); Mean Corpuscular Volume 95 fL (80-97); Mean Platelet Volume 8.5 fL (7.4-10.4); Platelet Count 296 10^3/uL (150-450); Red Blood Count 4.11 10^6 /uL (3.70-4.87); Red Cell Distribution Width 14 % (10-15)
[2021-09-13 11:41] LABS: INR 1.06 (0.86-1.15)
[2021-09-13] MEDS ORDERED: levETIRAcetam 1000MG IVPREMIX 1,000 MG/100 ML BAG IVPB ONE (11:48)
[2021-09-13 11:49] LABS: Albumin 3.9 g/dL (3.2-5.2); Albumin/Globulin Ratio 1.2 (1-3); Calcium 9.5 mg/dL (8.6-10.3); Globulin 3.2 g/dL (2-4); Total Bilirubin 0.4 mg/dL (0.2-1.0); Total Protein 7.1 g/dL (6.4-8.9); eGFR CKD-EPI 93.6 (>60)
[2021-09-13] MEDS ORDERED: Lactated Ringers 1000 ml BAG 1,000 ML IV ONE (12:19)
[2021-09-13] MEDS ORDERED: Lactated Ringers 1000 ml BAG 1,000 ML IV SCH (15:00)
[2021-09-13] MEDS: Enoxaparin 40 MG/0.4 ML SYR SUBCUT SCH (15:09)
[2021-09-14] MEDS: levETIRAcetam 500 MG IVPREMIX 500 MG/100 ML BAG IV SCH ×2 (02:39→22:37)
[2021-09-14 06:07] LABS: ABS Eosinophils 1.4 10^3/ul (0-0.6); ABS Lymphocytes 1.7 10^3/ul (1.0-4.8); ABS Monocytes 0.5 10^3/ul (0-0.8); Hematocrit 36 % (35-47); Hemoglobin 12.2 g/dL (12.0-16.0); Lymphocyte % 19.6 %; Mean Corpuscular HGB Conc 34 g/dL (31-36); Mean Corpuscular Hemoglobin 32 pg (27-31); Mean Corpuscular Volume 92 fL (80-97); Platelet Count 265 10^3/uL (150-450); Red Blood Count 3.84 10^6 /uL (3.70-4.87); Red Cell Distribution Width 14 % (10-15); White Blood Count 8.6 10^3/uL (3.5-10.8)
[2021-09-14 06:24] LABS: Albumin 3.5 g/dL (3.2-5.2); Albumin/Globulin Ratio 1.3 (1-3); Calcium 8.8 mg/dL (8.6-10.3); Globulin 2.6 g/dL (2-4); Potassium 3.7 mmol/L (3.5-5.0); Total Bilirubin 0.5 mg/dL (0.2-1.0); Total Protein 6.1 g/dL (6.4-8.9); eGFR CKD-EPI 98.7 (>60)
[2021-09-14] MEDS ORDERED: levETIRAcetam 500 MG IVPREMIX 500 MG/100 ML BAG IV SCH (09:00)
[2021-09-14] MEDS: Enoxaparin 40 MG/0.4 ML SYR SUBCUT SCH (15:37)
[2021-09-14 20:31] LABS: Urine Appearance Cloudy; Urine Bilirubin Negative (Negative); Urine Blood Negative (Negative); Urine Color Yellow; Urine Glucose Negative (Negative); Urine Ketones Negative (Negative); Urine Nitrite Negative (Negative); Urine Protein Negative (Negative); Urine Specific Gravity 1.013 (1.002-1.030); Urine Urobilinogen Negative (Negative)
[2021-09-14] MEDS ORDERED: levETIRAcetam LIQ 500 MG/5 ML UDC PO SCH (21:00)
[2021-09-14] MEDS: levETIRAcetam LIQ 500 MG/5 ML UDC PO SCH (21:45)
[2021-09-14] MEDS: Senna TAB 8.6 mg TAB PO SCH (21:45)
[2021-09-15] MEDS ORDERED: NS 0.9% 1000 ml BAG 1,000 ML IV ONE (08:48)
[2021-09-15] MEDS: levETIRAcetam LIQ 500 MG/5 ML UDC PO SCH ×2 (09:29→21:34)
[2021-09-15] MEDS ORDERED: NS 0.9% 1000 ml BAG 1,000 ML IV SCH (13:30)
[2021-09-15] MEDS: Enoxaparin 40 MG/0.4 ML SYR SUBCUT SCH (13:46)
[2021-09-15] MEDS: Senna TAB 8.6 mg TAB PO SCH (21:35)
[2021-09-16 07:19] VITALS: BP 129/68
[2021-09-16] MEDS: levETIRAcetam LIQ 500 MG/5 ML UDC PO SCH (08:14)
== END 2021-09-16 10:35 ==
LOC: EDHOLD 10:38 → ED 10:38 → SUATTDRO 14:04 → MEDTELE 19:28
PROVIDERS: ADMIT Internal Medicine; ATTEND Hospitalist